=== PATIENT | female | born 1985 | race Caucasian/White ===

== ENCOUNTER 2024-08-04 20:27 | Inpatient (IN) | payer SELFPAY ==
[~2024-08-04] VITALS: Ht 160 cm; Wt 65.8 kg
--- NOTE | 2024-08-04 20:53 | EKG ---
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
--- NOTE | 2024-08-04 21:26 | ERN ---
ED Note History of Present Illness Stated Complaint: VOMITTING Chief Complaint: Abdominal Pain Time Seen by MD: 20:31 Time Seen by Midlevel: 20:31 Dictation: The patient is a 38-year-old female with no past medical history who presents to the emergency department with complaints of nausea nonbloody vomiting onset yesterday. Patient reports epigastric abdominal pain. Denies any diarrhea or constipation. Does not report fevers but reports feeling warm. Allergies: Coded Allergies: No Known Allergies (Unverified Allergy, Unknown, 08/04/24) Past Medical History Past Medical History: Migraines Surgical History: None LMP: Jul 26, 2024 RN Note Reviewed/Agreed w/PFSH: Yes Review of System Dictation Constitutional: Negative for fever,chills, and weight loss Eyes: Negative for injury, pain,redness, and discharge ENT: Negative for injury,pain or swelling Cardiovascular: Negative for chest pain, palpitations, and edema Respiratory: Negative for shortness of breath, cough, and wheezing, Abdomen/GI: Negative for diarrhea, and constipation positive for abdominal pain, nausea, vomiting, Back: Negative for injury and pain : Negative for injury, bleeding and discharge MS/Extremity: Negative for injury and deformity Skin: Negative for rash, and discoloration Neuro: Negative for headache, weakness, numbness, tingling, and seizure Psych: Negative for suicide ideation, homicidal ideation, and hallucinations Initial Vital Sign VS Vital Signs Date Time Temp Pulse Resp B/P (MAP) Pulse Ox O2 Delivery O2 Flow Rate FiO2 08/04/24 21:20 97.7 75 20 117/84 97 Room Air 08/04/24 21:39 0 21 Physical Exam Dictation Vital Signs reviewed General Appearance: Alert, oriented x 3, no acute distress, well developed, nourished. Head and Face: non-traumatic. Eyes: PERRL, pink conjunctivas, eyelid no trauma, anterior chamber with arcus senilis. Ears: Pinnas intact and no signs of trauma or erythema ear canals clear and no discharge TM no erythema Nose: No discharge, no bleeding. Oropharynx: Mouth normal, tongue pink. pharynx clear,no erythema, tonsils no exudates, no abscesses noted, mucous membrane moist Neck: Supple, non-tender, no thyromegaly, no masses, no JVD, no bruits Breast:Deferred Chest:No tenderness, no crepitus, no paradoxical movement, no retractions Lungs:Clear, well-ventilated, symmetric, no rales, no wheezing, no rhonchi, no stridor, good breath sounds bilaterally Heart: Regular rate, regular rhythm, no murmur, no gallops Vascular: no peripheral edema, Abdomen: Soft, positive bowel sounds, nondistended, no guarding, nontender, no rebound, no masses no hepatomegaly, no splenomegaly, no Peters's sign, no hernias. Rectal: Deferred Genital: Deferred Neurological: Normal speech, motor function intact, sensory function intact Musculoskeletal: Neck nontender, full range of motion, back nontender, full range of motion, Extremities: nontender, full range of motion Skin: Color pink, dry, no turgor, no rash, no lacerations, no abrasions, no contusions. Lymphatic: Deferred Results (Laboratory/Radiology) Laboratory/Radiology Laboratory Tests Test 08/04/24 21:24 08/04/24 21:38 Urine Color YELLOW (YELLOW) Urine Appearance CLEAR (CLEAR) Urine pH 5.5 (5.0-8.0) Urine Specific [place] 1.016 (1.001-1.031) Urine Protein 10 mg/dL (NEGATIVE) H Urine Glucose (UA) NEGATIVE mg/dL (NEGATIVE) Urine Ketones 10 mg/dL (NEGATIVE) H Urine Occult Blood +- (TRACE) (NEGATIVE) H Urine Nitrate NEGATIVE (NEGATIVE) Urine Bilirubin NEGATIVE mg/dL (NEGATIVE) Urine Urobilinogen 3 mg/dL (0.2-1.0) H Urine Leukocyte Esterase NEGATIVE Bebeto/uL Urine RBC 0-1 /HPF (0-1) Urine WBC 6-10 /HPF (0-1) H Urine Squamous Epithelial Cells FEW /HPF (0-2) Urine Bacteria FEW /HPF (None Seen) Urine Other Casts 1 /LPF (None Seen) Urine HCG, Qualitative NEGATIVE (NEGATIVE) White Blood Count 6.3 K/uL (4.8-10.8) Red Blood Count 4.59 MIL/uL (4.00-5.50) Hemoglobin 13.4 g/dL (12.0-16.0) Hematocrit 38.7 % (36-48) Mean Corpuscular Volume 84.3 fL (79-99) Mean Corpuscular Hemoglobin 29.2 pg (27.0-33.0) Mean Corpuscular Hemoglobin Concent 34.6 g/dL (32.0-36.0) Red Cell Distribution Width 12.6 % (11.0-15.5) Platelet Count 166 K/uL (130-400) Mean Platelet Volume 9.7 fL (7.5-10.5) Immature Granulocyte % (Auto) 0.5 % (0-1) Neutrophils (%) (Auto) 40.2 % (40.0-77.0) Lymphocytes (%) (Auto) 41.7 % (21.0-51.0) Monocytes (%) (Auto) 13.0 % (3.0-13.0) Eosinophils (%) (Auto) 3.3 % (0.0-8.0) Basophils (%) (Auto) 1.3 % (0.0-5.0) Neutrophils # (Auto) 2.5 K/uL (1.8-7.7) Lymphocytes # (Auto) 2.6 K/uL (1.0-4.8) Monocytes # (Auto) 0.8 K/uL (0.1-1.0) Eosinophils # (Auto) 0.21 K/uL (0.00-0.70) Basophils # (Auto) 0.08 K/uL (0.00-0.20) Absolute Immature Granulocyte (auto 0.03 K/uL (0-1) Segmented Neutrophils % 46 % (40-70) Band Neutrophils % 8 % (0-2) H Lymphocytes % (Manual) 3 % (22-44) L Monocytes % (Manual) 5 % (2-9) Eosinophils % (Manual) 3 % (1-6) Nucleated Red Blood Cells 0.0 % (0.0-0.19) Differential Comment MANUAL DIFFERENTIAL Reactive Lymphocytes 35 % (0-0) H White Cell Morphology Comment Platelet Morphology Comment Red Blood Cell Morphology MICROCYTIC 1+ Sodium Level 135 mmol/L (136-145) L Potassium Level 3.6 mmol/L (3.5-5.1) Chloride Level 96 mmol/L (101-111) L Carbon Dioxide Level 32 mmol/L (21-32) Blood Urea Nitrogen 8 mg/dL (7-18) Creatinine 0.8 mg/dL (0.5-1.0) Glomerular Filtration Rate Calc 97 mL/min (>90) Random Glucose 107 mg/dL (70-105) H Total Calcium 9.0 mg/dL (8.5-10.1) Total Bilirubin 1.3 mg/dL (0.2-1.0) H Direct Bilirubin 0.6 mg/dL (0.0-0.3) H Aspartate Amino Transf (AST/SGOT) 1032 U/L (10-37) *H Alanine Aminotransferase (ALT/SGPT) 1868 U/L (12-78) *H Alkaline Phosphatase 233 U/L (50-136) H Troponin I High Sensitivity < 4 ng/L (4-50) L Total Protein 8.2 g/dL (6.0-8.3) Albumin 3.6 g/dL (3.5-5.0) Lipase 50 U/L (16-77) Labs Reviewed?: Yes EKG: (+) rhythm (Sinus rhythm) EKG Comment: Date:08/04/2024 Time:2049 Ventricular rate:76 [place] interval:127 QRS duration:81 QT/QTc:366 EKG interpretation: Sinus rhythm Reviewed by ED Attending no STEMI ED Course ED Course Orders Procedure Category Date Status Time Cbc With Differential LAB 08/04/24 Complete 20:43 Troponin I High LAB 08/04/24 Complete Sensitivity 20:43 ,Urine Test LAB 08/04/24 Complete 20:43 Urinalysis Profile LAB 08/04/24 Complete 20:43 12 Lead Ekg Tracing- EKG 08/04/24 Complete Technical 20:43 0.9%Nacl 1000ml (Ns PHA 08/04/24 Complete 1000ml) 21:00 Ondansetron 4mg Inj PHA 08/04/24 Complete (Zofran 4mg Inj) 21:00 Pantoprazole 40mg Inj PHA 08/04/24 Complete (Protonix 40mg Inj 21:00 Lipase LAB 08/04/24 Complete 20:43 Basic Metabolic Panel LAB 08/04/24 Complete 20:43 Hepatic Function Panel LAB 08/04/24 Complete 20:43 Culture Urine CHACHA 08/04/24 In Process 21:40 Manual Differential LAB 08/04/24 Complete 21:38 Us Abdominal Ruq\Ltd US 08/04/24 Taken 22:22 Edm Admit Bridge Order ADM 08/04/24 Transmitted 23:46 Admit Orders ADM 08/04/24 Transmitted 23:46 Current Medications Medications (Trade) Dose Ordered Sig/Thelma Route PRN Reason Start Time Stop Time Status Last Admin Dose Admin Ondansetron HCl (zoFRAN 4MG INJ) 4 mg ONCE ONCE IVP 08/04/24 21:00 08/04/24 21:23 DC 08/04/24 22:09 Pantoprazole Sodium (PROTonix 40MG INJ) 40 mg ONCE ONCE IVP 08/04/24 21:00 08/04/24 21:23 DC 08/04/24 22:10 Sodium Chloride 1,000 ml @ 0 mls/hr ONCE ONCE IV 08/04/24 21:00 08/04/24 21:23 DC 08/04/24 22:10 Vital Signs Date Time Temp Pulse Resp B/P (MAP) Pulse Ox O2 Delivery O2 Flow Rate FiO2 08/04/24 23:38 70 16 112/77 99 Room Air* 0 21 08/04/24 21:39 98.1 73 18 117/78 99 Room Air* 0 21 08/04/24 21:20 97.7 75 20 117/84 97 Room Air Medical Decision Making MDM MDM: The patient is a 38-year-old female with no past medical history who presents to the emergency department with complaints of nausea nonbloody vomiting onset yesterday. Patient reports epigastric abdominal pain. Denies any diarrhea or constipation. Does not report fevers but reports feeling warm. CBC showed no leukocytosis, no anemia, chemistry showed mild hyponatremia, hypochloremia, normal renal function, AST and ALT severely elevated, total bilirubin 1.3, negative lipase, negative troponin. Ultrasound revealed no gallstones. Patient's pain improved. We will be admitted for further evaluation of transaminitis. Differential diagnosis: Gastritis, gastroenteritis, dehydration, electrolyte imbalance, Comorbidities: None Tests considered and not ordered secondary to shared decision making include: none Previous outside records reviewed: none Risk of complication and/or morbidity or mortality of patient management: The patient meets criteria for admission. Need for emergency major/minor surgery: No There are no social concerns with this patient. I independently interpreted the tests I ordered (labs, urinalysis, etc.). I discussed the case with the hospitalist for admission. [facility] who accepts admission I discussed the case with the following specialists: none. Historian: pateint. I independently interpreted imaging studies and EKGs that I ordered (US, CT, XR, EKG, etc.). External chart review: none. Medical management and examination interpretation discussions were had by me with other qualified healthcare professionals as indicated for the patient's care. DX & DISP Disposition: Inpatient Decision to Admit Date: Aug 04, 2024 Decision to Admit Time: 23:52 Departure Impression: Primary Impression: Transaminitis Additional Impressions: Total bilirubin, elevated, Nausea and vomiting, Epigastric pain, Hyponatremia, Hypochloremia Condition: Stable I have reviewed the case, and I agree with, Diagnosis and Plan MARIE CHANEY [facility] Aug 04, 2024 21:26
[2024-08-04 21:37] LABS: APPEARANCE,URINE CLEAR (CLEAR); BILIRUBIN,URINE NEGATIVE (NEGATIVE); COLOR,URINE YELLOW (YELLOW); GLUCOSE, URINE (UA) NEGATIVE (NEGATIVE); KETONES,URINE 10 mg/dL (NEGATIVE); LEUKOCYTE ESTERASE ,URINE NEGATIVE Leu/uL (NEGATIVE); NITRATE,URINE NEGATIVE (NEGATIVE); PH,URINE 5.5 (5.0-8.0); PROTEIN,URINE 10 mg/dL (NEGATIVE); UROBILINOGEN,URINE 3 mg/dL (0.2-1.0)
[2024-08-04 21:38] LABS: HCG,QUALITATIVE URINE NEGATIVE (NEGATIVE)
[2024-08-04 21:39] LABS: ADD UA MICROSCOPIC YES
--- NOTE | 2024-08-04 21:39 | NUR ---
PT CARE ASSUMED AT THIS TIME
[2024-08-04 21:40] LABS: BACTERIA,URINE FEW /HPF (None Seen); MUCUS,URINE RARE LPF (None Seen); OTHER CASTS, URINE 1 /LPF (None Seen); RBC,URINE 0-1 /HPF (0-1); SQUAMOUS EPITHELIAL CELL,UR FEW /HPF (0-2)
[2024-08-04 21:49] LABS: BASOPHILS # (AUTO) 0.08 K/uL (0.00-0.20); BASOPHILS % (AUTO) 1.3 % (0.0-5.0); EOSINOPHILS # (AUTO) 0.21 K/uL (0.00-0.70); EOSINOPHILS % (AUTO) 3.3 % (0.0-8.0); HEMATOCRIT 38.7 % (36-48); IMMATURE GRANULOCYTE ABSOLUTE 0.03 K/uL (0-1); LYMPHOCYTES # (AUTO) 2.6 K/uL (1.0-4.8); LYMPHOCYTES % (AUTO) 41.7 % (21.0-51.0); MEAN CORPUSCULAR HEMOGLOBIN 29.2 pg (27.0-33.0); MEAN CORPUSCULAR HGB CONC 34.6 g/dL (32.0-36.0); MEAN CORPUSCULAR VOLUME 84.3 fL (79-99); MONOCYTES # (AUTO) 0.8 K/uL (0.1-1.0); NEUTROPHILS # (AUTO) 2.5 K/uL (1.8-7.7); NEUTROPHILS % (AUTO) 40.2 % (40.0-77.0); PLATELET COUNT (AUTO) 166 K/uL (130-400); RED BLOOD CELL COUNT(AUTO) 4.59 MIL/uL (4.00-5.50); RED CELL DISTRIBUTION WIDTH 12.6 % (11.0-15.5); WHITE BLOOD COUNT (AUTO) 6.3 K/uL (4.8-10.8)
[2024-08-04 22:01] LABS: CREATININE 0.8 mg/dL (0.5-1.0); POTASSIUM 3.6 mmol/L (3.5-5.1)
[2024-08-04] MEDS: ondanSETRON 4MG INJ IVP ONE (22:09)
[2024-08-04] MEDS: 0.9%NACL 1000ML 1,000 ML IV ONE (22:10)
[2024-08-04] MEDS: PANTOPrazole 40 MG/VIAL IVP ONE (22:10)
[2024-08-04 22:16] LABS: ALBUMIN 3.6 g/dL (3.5-5.0); BILIRUBIN,DIRECT 0.6 mg/dL (0.0-0.3); BILIRUBIN,TOTAL 1.3 mg/dL (0.2-1.0); TOTAL PROTEIN, SERUM 8.2 g/dL (6.0-8.3)
[2024-08-04 22:22] LABS: BAND NEUTROPHILS % (MANUAL) 8 % (0-2); EOSINOPHILS % (MANUAL) 3 % (1-6); LYMPHOCYTES % (MANUAL) 3 % (22-44); MAN.DIFF COMMENT-IMPRESSION MANUAL DIFFERENTIAL; MONOCYTES % (MANUAL) 5 % (2-9); REACTIVE LYMPHOCYTES 35 % (0-0); SEGMENTED NEUTROPHILS % 46 % (40-70); TOTAL CELLS COUNTED 100
--- NOTE | 2024-08-04 23:46 | HP ---
[facility] PH[facility] Date of Service: Aug 04, 2024 Time of Service: 23:46 PCP: Self-referral HISTORY OF PRESENT ILLNESS: This is a 38-year-old female with no pertinent medical history who presents to the ED for complaints of abdominal pain, nausea and vomiting. Patient reports three weeks ago she started having chills subsided and last week she started having headaches and she has been taking Tylenol 1000 mg three to 4 times a day and ibuprofen everyday since last week. Patient states last Sunday and Sunday she started having nausea and vomiting for about 10 episodes per day and today she started having mild fever, abdominal pain around mid abdomen so she decided to come to the ED for evaluation. Patient denies alcohol, cigarette and recreational drug use. Seen and examined patient in the ER awake alert coherent and appears comfortable. Patient denies itching, diarrhea, constipation, chest pain, cough, palpitation and shortness of breaths. Vital signs 98.1, heart rate 70, blood pressure 112/77 saturation 99% on room air. Labs CBC unremarkable. Sodium 135, chloride 96, glucose 107, total bilirubin 1.3, direct bilirubin 0.6, AST 1032, ALT 1868 alkaline phosphatase 233 troponin less than four lipase 50. Abdominal ultrasound result is still pending at this time. While in the ER patient received Protonix 40 mg IV, Zofran 4 mg IV and 1 L NS bolus. We will admit patient for further medical management. REVIEW OF SYSTEMS CONSTITUTIONAL: Positive chills Denies fevers, night sweats. No unintentional weight loss reported. NEUROLOGICAL: Denies headache, amaurosis fugax, motor weakness, sensory deficit, vertigo/spinning sensation, gait abnormalities, or tremors. ENT: No hearing loss, otalgia, otorrhea, rhinitis, rhinorrhea, hoarseness, or sore throat. CARDIOVASCULAR: Denies any exertional angina, dyspnea on exertion, orthopnea, paroxysmal nocturnal dyspnea, palpitations, life-threatening arrhythmias, claudication. PULMONARY: Denies any shortness of breath, cough, phlegm/sputum, hemoptysis, pleuritic chest pain. SLEEP: Denies morning headaches, daytime somnolence or napping. Denies difficul ty falling asleep, staying asleep, waking from sleep. Denies knowledge of snoring. GASTROINTESTINAL: Complain of abdominal pain nausea and vomiting Denies any type of dysphagia to either liquids or solids. Denies pyrosis, early satiety, diarrhea, constipation, or changes in stool consistency or caliber. Denies coffee-ground emesis, hematemesis, hematochezia, or melanotic stools. GENITOURINARY: Denies frequency, urgency, nocturia, hematuria or incontinence (Storage/Irritative symptoms.) Low urinary stream, straining to void, urinary intermittency or hesitancy, splitting of the voiding stream, terminal dribbling. ENDOCRINOLOGIC: Denies polyuria, polydipsia, polyphagia or heat/cold intolerances. HEMATOLOGIC: Denies thrombophilia/previous clots, or coagulopathy/bleeding dis orders. ONCOLOGIC: Denies personal history of malignancy. DERMATOLOGIC: Denies rashes or pruritus. PSYCHIATRIC: Denies any suicidal or homicidal ideation. Denies hallucinations. PAST MEDICAL HISTORY: [Patient denies ] PAST SURGICAL HISTORY: [ x1 ] PAST SOCIAL HISTORY: [ Patient lives with . Patient denies alcohol tobacco and recreational drug use ] FAMILY HISTORY: [ Noncontributory] Coded Allergies: No Known Allergies (Unverified Allergy, Unknown, 08/04/24) PHYSICAL EXAM GENERAL APPEARANCE: The patient is awake, alert, and oriented, in no acute cardiopulmonary distress. NEUROLOGICAL: Cranial nerves II-XII grossly intact. Motor is 5/5 in bilateral upper and lower extremities proximal to distal. No sensory deficits. HEENT: Face is symmetric. Pupils are equal and reactive. Extraocular movements are intact. NECK: Supple. No JVD. No thyromegaly. No submental, submandibular, pre- /postauricular, occipital or supraclavicular lymphadenopathy. CHEST: Normal chest expansion. No Telemetry. LUNGS: Absence of any rales, rhonchi or any wheezing. CARDIOVASCULAR: Regular. S1 and S2 normal. No appreciable rubs, murmurs or gallops. ABDOMEN: Positive tenderness around mid abdomen on palpation Softand nondistended. There is no rebound, voluntary guarding, or rigidity. : Deferred. No [place]. EXTREMITIES: Non-edematous and not cyanotic. No clubbing. Good capillary refill. SKIN: No skin breakdown. Vital Sign (Last 24 Hours) 08/04/24 08/04/24 21:39 23:38 Temp 98.1 Pulse 70 Resp 16 B/P (MAP) 112/77 Pulse Ox 99 O2 Delivery Room Air* O2 Flow Rate 0 FiO2 21 LABS: Laboratory: Test 08/04/24 21:38 08/04/24 21:24 Range/Units White Blood Count 6.3 4.8-10.8 K/uL Red Blood Count 4.59 4.00-5.50 MIL/uL Hemoglobin 13.4 12.0-16.0 g/dL Hematocrit 38.7 36-48 % Mean Corpuscular Volume 84.3 79-99 fL Mean Corpuscular Hemoglobin 29.2 27.0-33.0 pg Mean Corpuscular Hemoglobin Concent 34.6 32.0-36.0 g/dL Red Cell Distribution Width 12.6 11.0-15.5 % Platelet Count 166 130-400 K/uL Mean Platelet Volume 9.7 7.5-10.5 fL Immature Granulocyte % (Auto) 0.5 0-1 % Neutrophils (%) (Auto) 40.2 40.0-77.0 % Lymphocytes (%) (Auto) 41.7 21.0-51.0 % Monocytes (%) (Auto) 13.0 3.0-13.0 % Eosinophils (%) (Auto) 3.3 0.0-8.0 % Basophils (%) (Auto) 1.3 0.0-5.0 % Neutrophils # (Auto) 2.5 1.8-7.7 K/uL Lymphocytes # (Auto) 2.6 1.0-4.8 K/uL Monocytes # (Auto) 0.8 0.1-1.0 K/uL Eosinophils # (Auto) 0.21 0.00-0.70 K/uL Basophils # (Auto) 0.08 0.00-0.20 K/uL Absolute Immature Granulocyte (auto 0.03 0-1 K/uL Segmented Neutrophils % 46 40-70 % Band Neutrophils % 8 H 0-2 % Lymphocytes % (Manual) 3 L 22-44 % Monocytes % (Manual) 5 2-9 % Eosinophils % (Manual) 3 1-6 % Nucleated Red Blood Cells 0.0 0.0-0.19 % Differential Comment MANUAL DIFFERENTIAL Reactive Lymphocytes 35 H 0-0 % White Cell Morphology Comment Platelet Morphology Comment Red Blood Cell Morphology MICROCYTIC 1+ Sodium Level 135 L 136-145 mmol/L Potassium Level 3.6 3.5-5.1 mmol/L Chloride Level 96 L 101-111 mmol/L Carbon Dioxide Level 32 21-32 mmol/L Blood Urea Nitrogen 8 7-18 mg/dL Creatinine 0.8 0.5-1.0 mg/dL Glomerular Filtration Rate Calc 97 >90 mL/min Random Glucose 107 H 70-105 mg/dL Total Calcium 9.0 8.5-10.1 mg/dL Total Bilirubin 1.3 H 0.2-1.0 mg/dL Direct Bilirubin 0.6 H 0.0-0.3 mg/dL Aspartate Amino Transf (AST/SGOT) 1032 *H 10-37 U/L Alanine Aminotransferase (ALT/SGPT) 1868 *H 12-78 U/L Alkaline Phosphatase 233 H 50-136 U/L Troponin I High Sensitivity < 4 L 4-50 ng/L Total Protein 8.2 6.0-8.3 g/dL Albumin 3.6 3.5-5.0 g/dL Lipase 50 16-77 U/L Urine Color YELLOW YELLOW Urine Appearance CLEAR CLEAR Urine pH 5.5 5.0-8.0 Urine Specific [place] 1.016 1.001-1.031 Urine Protein 10 H NEGATIVE mg/dL Urine Glucose (UA) NEGATIVE NEGATIVE mg/dL Urine Ketones 10 H NEGATIVE mg/dL Urine Occult Blood +- (TRACE) H NEGATIVE Urine Nitrate NEGATIVE NEGATIVE Urine Bilirubin NEGATIVE NEGATIVE mg/dL Urine Urobilinogen 3 H 0.2-1.0 mg/dL Urine Leukocyte Esterase NEGATIVE NEGATIVE Bebeto/uL Urine RBC 0-1 0-1 /HPF Urine WBC 6-10 H 0-1 /HPF Urine Squamous Epithelial Cells FEW 0-2 /HPF Urine Bacteria FEW None Seen /HPF Urine Other Casts 1 None Seen /LPF Urine HCG, Qualitative NEGATIVE NEGATIVE DIAGNOSTICS / RADIOLOGY: [ ] ASSESSMENT: 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 POA Elevated liver enzymes POA Dehydration POA PLAN: We will admit patient in medical telemetry We will start on clear liquid diet advanced as tolerated We will start NS @ 100 ml / hr x2 bags and re evaluate We will start on Famotidine 20 mg IV bid for GI prophylaxis We will replace electrolytes as needed per protocol We will add prn medication for fever,pain,cough ,nausea and vomiting We will follow up abdominal ultrasound result We will seek gastroenterology consultation We will request labs in am Further orders to follow depending on above results Case discussed with attending physician and came up with above treatment and plan of care. ADVANCED CARE PLANNING 1. Which of the following were discussed? Hospice Care - No Therapeutic options - Yes Advance Directives - No Other discussions - 2. Discussed with who? Patient and Devin 3. Voluntary nature of this service was explained to the patient? Yes 4. Amount of time spent - _20 5. Reviewed by Physician? (if this service was performed by NPP) Yes Patient seen and examined by me. Agree with note by IMAGING ENGINEER SEE ADDITIONAL ORDERS PER CHART DISCUSSED WITH NURSING STAFF CORBY GARIBAY [employer] RESOURCES DIRECTOR Aug 04, 2024 23:46
[2024-08-05] MEDS: 0.9%NACL 1000ML 1,000 ML IV SCH (01:40)
--- NOTE | 2024-08-05 01:41 | HMCIMG ---
US ABDOMINAL RUQ\E\LTD HISTORY: No additional history given. COMPARISON: None TECHNIQUE: Right upper quadrant abdominal ultrasound study was performed. FINDINGS: The study is limited due to overlying bowel gas. The visualized portion of the pancreas is within normal limits. Liver measures 14.4 cm. Liver is echogenic consistent with liver parenchymal disease. No gallstone is seen. Common duct measures 5 mm. No evidence of gallbladder wall thickening is seen. Right kidney measures 9.9 x 5.2 x 5.1 cm. No hydronephrosis is seen of the right kidney. IMPRESSION: 1. No gallstones or ductal dilatation is seen. 2. No hydronephrosis is seen.
[2024-08-05] MEDS: ondanSETRON 4MG INJ IV PRN (01:44)
--- NOTE | 2024-08-05 04:41 | NUR ---
PROVIDER PAGED AT THIS TIME REGAURDING MEDICATION. PENDING CALL BACK.
[2024-08-05 04:50] LABS: BASOPHILS # (AUTO) 0.07 K/uL (0.00-0.20); BASOPHILS % (AUTO) 1.3 % (0.0-5.0); EOSINOPHILS # (AUTO) 0.21 K/uL (0.00-0.70); EOSINOPHILS % (AUTO) 3.9 % (0.0-8.0); HEMATOCRIT 33.2 % (36-48); IMMATURE GRANULOCYTE ABSOLUTE 0.03 K/uL (0-1); LYMPHOCYTES # (AUTO) 2.2 K/uL (1.0-4.8); LYMPHOCYTES % (AUTO) 39.9 % (21.0-51.0); MEAN CORPUSCULAR HEMOGLOBIN 29.5 pg (27.0-33.0); MEAN CORPUSCULAR HGB CONC 34.9 g/dL (32.0-36.0); MEAN CORPUSCULAR VOLUME 84.5 fL (79-99); MONOCYTES # (AUTO) 0.7 K/uL (0.1-1.0); MONOCYTES % (AUTO) 12.6 % (3.0-13.0); NEUTROPHILS # (AUTO) 2.3 K/uL (1.8-7.7); NEUTROPHILS % (AUTO) 41.7 % (40.0-77.0); PLATELET COUNT (AUTO) 147 K/uL (130-400); RED BLOOD CELL COUNT(AUTO) 3.93 MIL/uL (4.00-5.50); RED CELL DISTRIBUTION WIDTH 12.5 % (11.0-15.5); WHITE BLOOD COUNT (AUTO) 5.4 K/uL (4.8-10.8)
[2024-08-05 05:10] LABS: ALBUMIN 2.9 g/dL (3.5-5.0); BILIRUBIN,DIRECT 0.5 mg/dL (0.0-0.3); BILIRUBIN,TOTAL 1.1 mg/dL (0.2-1.0); CARBON DIOXIDE 31 mmol/L (21-32); CHLORIDE 101 mmol/L (101-111); CREATININE 0.7 mg/dL (0.5-1.0); GAMMA GLUTAMYL TRANSFERASE 133 U/L (5-85); GLOMERULAR FILTR. RATE CALC 114 mL/min (>90); GLUCOSE,RANDOM 96 mg/dL (70-105); LACTATE DEHYDROGENASE 537 U/L (81-234); POTASSIUM 3.2 mmol/L (3.5-5.1); SODIUM SERUM 138 mmol/L (136-145); TOTAL PROTEIN, SERUM 6.9 g/dL (6.0-8.3); UREA NITROGEN, BLOOD 6 mg/dL (7-18)
[2024-08-05 05:13] LABS: ACETAMINOPHEN < 1 mcg/mL (10-30)
[2024-08-05 05:14] LABS: ALANINE AMINOTRANSFERASE 1548 U/L (12-78); ASPARTATE AMINOTRANSFERASE 844 U/L (10-37)
--- NOTE | 2024-08-05 05:56 | NUR ---
PROVIDER CALLED BACK AT THIS TIME. ORDERS GIVEN.
[2024-08-05] MEDS: ketOROlac 15MG/ML VIAL (15MG/ML) IV ONE (06:35)
--- NOTE | 2024-08-05 07:09 | NUR ---
REPORT GIVEN TO SUSANA DIANE AT THIS TIME
--- NOTE | 2024-08-05 08:51 | NUR ---
NOTIFIED SUKHWINDER MENDOZA OF CONSULT, NO NEW ORDERS AT THIS TIME
[2024-08-05] MEDS: FAMOTIDINE 20MG VIAL IV SCH (08:58)
--- NOTE | 2024-08-05 09:50 | PN ---
[facility] PROGRESS NOTE Date of Service: Aug 05, 2024 Time of Service: 09:27 SUBJECTIVE: [38 year old presented to the ED with complaints of abdominal pain, nausea and vomiting. Patient also with chills, headaches. Patient reported that she has been taking Tylenol 1000 mg, 3-4 times a day and ibuprofen since last week. This weekend, patient started having nausea and vomiting for about 10 times and started having fever. Patient was noted with elevated transaminitis which could be due to suspected Tylenol induced hepatotoxicity. 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 Patient will remain on clear liquid diet. Continue with IV fluids. ] REVIEW OF SYSTEMS CONSTITUTIONAL: Positive chills Denies fevers, night sweats. No unintentional weight loss reported. NEUROLOGICAL: Denies headache, amaurosis fugax, motor weakness, sensory deficit, vertigo/spinning sensation, gait abnormalities, or tremors. ENT: No hearing loss, otalgia, otorrhea, rhinitis, rhinorrhea, hoarseness, or sore throat. CARDIOVASCULAR: Denies any exertional angina, dyspnea on exertion, orthopnea, paroxysmal nocturnal dyspnea, palpitations, life-threatening arrhythmias, claudication. PULMONARY: Denies any shortness of breath, cough, phlegm/sputum, hemoptysis, pleuritic chest pain. SLEEP: Denies morning headaches, daytime somnolence or napping. Denies difficulty falling asleep, staying asleep, waking from sleep. Denies knowledge of snoring. GASTROINTESTINAL: Complain of abdominal pain nausea and vomiting Denies any type of dysphagia to either liquids or solids. Denies pyrosis, early satiety, diarrhea, constipation, or changes in stool consistency or caliber. Denies coffee-ground emesis, hematemesis, hematochezia, or melanotic stools. GENITOURINARY: Denies frequency, urgency, nocturia, hematuria or incontinence (Storage/Irritative symptoms.) Low urinary stream, straining to void, urinary intermittency or hesitancy, splitting of the voiding stream, terminal dribbling. ENDOCRINOLOGIC: Denies polyuria, polydipsia, polyphagia or heat/cold intolerances. HEMATOLOGIC: Denies thrombophilia/previous clots, or coagulopathy/bleeding disorders. ONCOLOGIC: Denies personal history of malignancy. DERMATOLOGIC: Denies rashes or pruritus. PSYCHIATRIC: Denies any suicidal or homicidal ideation. Denies hallucinations. PHYSICAL EXAM GENERAL APPEARANCE: The patient is awake, alert, and oriented, in no acute cardiopulmonary distress. NEUROLOGICAL: Cranial nerves II-XII grossly intact. Motor is 5/5 in bilateral upper and lower extremities proximal to distal. No sensory deficits. HEENT: Face is symmetric. Pupils are equal and reactive. Extraocular movements are intact. NECK: Supple. No JVD. No thyromegaly. No submental, submandibular, pre- /postauricular, occipital or supraclavicular lymphadenopathy. CHEST: Normal chest expansion. No Telemetry. LUNGS: Absence of any rales, rhonchi or any wheezing. CARDIOVASCULAR: Regular. S1 and S2 normal. No appreciable rubs, murmurs or gallops. ABDOMEN: Positive tenderness around mid abdomen on palpation Softand nondistended. There is no rebound, voluntary guarding, or rigidity. : Deferred. No Oseguera. EXTREMITIES: Non-edematous and not cyanotic. No clubbing. Good capillary refill. SKIN: No skin breakdown. Vital Signs (last 8hr) Date Time Temp Pulse Resp B/P (MAP) Pulse Ox O2 Delivery O2 Flow Rate FiO2 08/05/24 07:29 98.2 90 16 117/60 99 Room Air* 0 21 08/05/24 07:11 83 17 117/60 98 Room Air* 0 21 08/05/24 06:05 72 16 118/73 99 Room Air* 0 21 08/05/24 04:03 65 13 110/74 99 Room Air* 0 21 LABS: Laboratory: Test 08/05/24 04:37 08/04/24 21:38 08/04/24 21:24 Range/Units White Blood Count 5.4 4.8-10.8 K/uL Red Blood Count 3.93 L 4.00-5.50 MIL/uL Hemoglobin 11.6 L 12.0-16.0 g/dL Hematocrit 33.2 L 36-48 % Mean Corpuscular Volume 84.5 79-99 fL Mean Corpuscular Hemoglobin 29.5 27.0-33.0 pg Mean Corpuscular Hemoglobin Concent 34.9 32.0-36.0 g/dL Red Cell Distribution Width 12.5 11.0-15.5 % Platelet Count 147 130-400 K/uL Mean Platelet Volume 9.7 7.5-10.5 fL Immature Granulocyte % (Auto) 0.6 0-1 % Neutrophils (%) (Auto) 41.7 40.0-77.0 % Lymphocytes (%) (Auto) 39.9 21.0-51.0 % Monocytes (%) (Auto) 12.6 3.0-13.0 % Eosinophils (%) (Auto) 3.9 0.0-8.0 % Basophils (%) (Auto) 1.3 0.0-5.0 % Neutrophils # (Auto) 2.3 1.8-7.7 K/uL Lymphocytes # (Auto) 2.2 1.0-4.8 K/uL Monocytes # (Auto) 0.7 0.1-1.0 K/uL Eosinophils # (Auto) 0.21 0.00-0.70 K/uL Basophils # (Auto) 0.07 0.00-0.20 K/uL Absolute Immature Granulocyte (auto 0.03 0-1 K/uL Nucleated Red Blood Cells 0.0 0.0-0.19 % Sodium Level 138 136-145 mmol/L Potassium Level 3.2 L 3.5-5.1 mmol/L Chloride Level 101 101-111 mmol/L Carbon Dioxide Level 31 21-32 mmol/L Blood Urea Nitrogen 6 L 7-18 mg/dL Creatinine 0.7 0.5-1.0 mg/dL Glomerular Filtration Rate Calc 114 >90 mL/min Random Glucose 96 70-105 mg/dL Total Calcium 8.0 L 8.5-10.1 mg/dL Magnesium Level 1.70 L 1.80-2.40 mg/dL Total Bilirubin 1.1 H 0.2-1.0 mg/dL Direct Bilirubin 0.5 H 0.0-0.3 mg/dL Gamma Glutamyl Transpeptidase 133 H 5-85 U/L Aspartate Amino Transf (AST/SGOT) 844 *H 10-37 U/L Alanine Aminotransferase (ALT/SGPT) 1548 *H 12-78 U/L Alkaline Phosphatase 183 H 50-136 U/L Lactate Dehydrogenase 537 H 81-234 U/L Total Protein 6.9 6.0-8.3 g/dL Albumin 2.9 L 3.5-5.0 g/dL Acetaminophen Level < 1 L 10-30 mcg/mL Segmented Neutrophils % 46 40-70 % Band Neutrophils % 8 H 0-2 % Lymphocytes % (Manual) 3 L 22-44 % Monocytes % (Manual) 5 2-9 % Eosinophils % (Manual) 3 1-6 % Differential Comment MANUAL DIFFERENTIAL Reactive Lymphocytes 35 H 0-0 % White Cell Morphology Comment Platelet Morphology Comment Red Blood Cell Morphology MICROCYTIC 1+ Troponin I High Sensitivity < 4 L 4-50 ng/L Lipase 50 16-77 U/L Urine Color YELLOW YELLOW Urine Appearance CLEAR CLEAR Urine pH 5.5 5.0-8.0 Urine Specific [place] 1.016 1.001-1.031 Urine Protein 10 H NEGATIVE mg/dL Urine Glucose (UA) NEGATIVE NEGATIVE mg/dL Urine Ketones 10 H NEGATIVE mg/dL Urine Occult Blood +- (TRACE) H NEGATIVE Urine Nitrate NEGATIVE NEGATIVE Urine Bilirubin NEGATIVE NEGATIVE mg/dL Urine Urobilinogen 3 H 0.2-1.0 mg/dL Urine Leukocyte Esterase NEGATIVE NEGATIVE Bebeto/uL Urine RBC 0-1 0-1 /HPF Urine WBC 6-10 H 0-1 /HPF Urine Squamous Epithelial Cells FEW 0-2 /HPF Urine Bacteria FEW None Seen /HPF Urine Other Casts 1 None Seen /LPF Urine HCG, Qualitative NEGATIVE NEGATIVE Current Medications Medications (Trade) Dose Ordered Sig/Thelma Route PRN Reason Start Time Stop Time Status Last Admin Dose Admin Famotidine (Pepcid 20mg Vial) 20 mg BID IV 08/05/24 09:00 09/04/24 08:59 08/05/24 08:58 20 MG Ondansetron HCl (zoFRAN 4MG INJ) 4 mg Q6H PRN IV NAUSEA/VOMITING 08/05/24 01:00 09/04/24 00:59 08/05/24 01:44 4 MG Sodium Chloride 1,000 ml @ 100 mls/hr Q10H IV 08/05/24 01:00 09/04/24 00:59 08/05/24 01:40 100 MLS/HR DIAGNOSTICS / RADIOLOGY: [ ] ASSESSMENT: 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 POA Elevated liver enzymes POA Dehydration POA PLAN: Continue medical telemetry Continue clear liquid diet advanced as tolerated Continue NS @ 100 ml / hr x2 bags and re evaluate Continue on Famotidine 20 mg IV bid for GI prophylaxis We will replace electrolytes as needed per protocol We will add prn medication for fever,pain,cough ,nausea and vomiting Ultrasound was unremarkable We will follow up with GI We will order routine, AMA, HARRY, ASMA, hip panel we will be followed up We will request labs in am Further orders to follow depending on above results Case discussed with attending physician and came up with above treatment and plan of care. ATTESTATION BY PHYSICIAN I have seen and examined the patient. I reviewed the documentation, medical decision making, and treatment plan as noted by the mid-level provider above. I agree with the findings and plan of care. MARLEE GRANADO MD, [facility] Aug 05, 2024 09:50
--- NOTE | 2024-08-05 10:13 | NUR ---
AGGLUTIN, AMA AND ASMA ORDERED BY ELISE MENDOZA VIE NURSING COMMUNICATION NOTE, CALLED ELISE MENDOZA TO VERIFY ORDER BECAUSE PRIMARY NURSE COULD NOT FIND ON LAB ORDERS, AND STATES SHE SPOKE TO [employer] ABOUT AQUIRING ORDERS FROM NURSING COMMUNICATION AND ORDER THEM. PRIMARY NURSE SPOKE TO CELIA [employer] AND STATES SHE WILL PLACE ORDERS.
--- NOTE | 2024-08-05 10:20 | CONS ---
GASTROENTEROLOGY CONSULTATION NOTE Date of Consultation: Aug 05, 2024 Time of Consultation: 10:20 History of Present Illness: This is a 38-year-old female with no past medical history who presented to the hospital due to abdominal pain, nausea and vomiting. She reported 3 weeks ago that she began to have chills and headaches for which she took Tylenol 3-4 times a day and ibuprofen. She started having persistent nausea and vomiting over 10 episodes per day with mild fever and abdominal pain. Denies alcohol, nicotine or recreational drug use. She was found to have extremely elevated transaminases. Total bilirubin 1.3, AST 1032, ALT 1868 and alkaline phos of 233. Lipase normal. Albumin normal. Hemoglobin 11.6 with a platelet count of 146. INR 1.03. Acute hepatitis panel was negative. Abdominal ultrasound. MRCP also normal. Review of Systems: CONSTITUTIONAL: No malaise or change in sensation of wellbeing. ENMT: No rhinorrhea, otorrhea, sinus pain, ear ache. CARDIOVASCULAR: No angina, palpitations, orthopnea or paroxysmal dyspnea. RESPIRATORY: No SOB. GASTROINTESTINAL: No abdominal pain, nausea, vomiting, diarrhea, hematemesis, melena or change in the patient's habitual bowel movements consistency/number. GENITOURINARY: No dysuria, hematuria or change in bladder continence. MUSCULOSKELETAL: No new muscle pain or decrease in muscular strength. No new joint swelling, redness or tenderness. SKIN: No new rash. Past Medical History: PAST MEDICAL HISTORY: [Patient denies ] PAST SURGICAL HISTORY: [ x1 ] PAST SOCIAL HISTORY: [ Patient lives with . Patient denies alcohol tobacco and recreational drug use ] FAMILY HISTORY: [ Noncontributory] Coded Allergies: No Known Allergies (Unverified Allergy, Unknown, 08/04/24) Physical Exam: GEN: Awake, alert, oriented in person, time and place, and in no acute distress. HEENT: No sinus tenderness. Tympanic membranes were not examined. No rhinorrhea. Oral pharyngeal mucosa is pink, moist and within normal limits. Neck is supple with no cervical lymphadenopathy, thyromegaly or JVD. CHEST: Inspection, palpation and percussion of the chest were unremarkable. Lung auscultation revealed normal breath sounds bilaterally. CARDIAC: PMI is within normal limits. Heart sounds are regular. Normal S1, S2. No gallop or murmur. ABD: Soft, non-tender and not distended. No peritoneal signs on palpation. No organomegaly. Normal bowel sounds. EXT: No cyanosis or clubbing. No edema. SKIN: Intact. No rashes. JOINTS: No evidence of synovitis or acute arthritis. NEURO: Alert and oriented to name, place and person. Cranial nerve examination is unremarkable. No focal motor deficits. Normal speech. Gait is normal. Strength is normal. Vital Sign (Last 24 Hours) 08/05/24 07:29 Temp 98.2 Pulse 90 Resp 16 B/P (MAP) 117/60 Pulse Ox 99 O2 Delivery Room Air* O2 Flow Rate 0 FiO2 21 Laboratory: [ ] Laboratory: Test 08/05/24 04:37 08/04/24 21:38 08/04/24 21:24 Range/Units White Blood Count 5.4 4.8-10.8 K/uL Red Blood Count 3.93 L 4.00-5.50 MIL/uL Hemoglobin 11.6 L 12.0-16.0 g/dL Hematocrit 33.2 L 36-48 % Mean Corpuscular Volume 84.5 79-99 fL Mean Corpuscular Hemoglobin 29.5 27.0-33.0 pg Mean Corpuscular Hemoglobin Concent 34.9 32.0-36.0 g/dL Red Cell Distribution Width 12.5 11.0-15.5 % Platelet Count 147 130-400 K/uL Mean Platelet Volume 9.7 7.5-10.5 fL Immature Granulocyte % (Auto) 0.6 0-1 % Neutrophils (%) (Auto) 41.7 40.0-77.0 % Lymphocytes (%) (Auto) 39.9 21.0-51.0 % Monocytes (%) (Auto) 12.6 3.0-13.0 % Eosinophils (%) (Auto) 3.9 0.0-8.0 % Basophils (%) (Auto) 1.3 0.0-5.0 % Neutrophils # (Auto) 2.3 1.8-7.7 K/uL Lymphocytes # (Auto) 2.2 1.0-4.8 K/uL Monocytes # (Auto) 0.7 0.1-1.0 K/uL Eosinophils # (Auto) 0.21 0.00-0.70 K/uL Basophils # (Auto) 0.07 0.00-0.20 K/uL Absolute Immature Granulocyte (auto 0.03 0-1 K/uL Nucleated Red Blood Cells 0.0 0.0-0.19 % Sodium Level 138 136-145 mmol/L Potassium Level 3.2 L 3.5-5.1 mmol/L Chloride Level 101 101-111 mmol/L Carbon Dioxide Level 31 21-32 mmol/L Blood Urea Nitrogen 6 L 7-18 mg/dL Creatinine 0.7 0.5-1.0 mg/dL Glomerular Filtration Rate Calc 114 >90 mL/min Random Glucose 96 70-105 mg/dL Total Calcium 8.0 L 8.5-10.1 mg/dL Magnesium Level 1.70 L 1.80-2.40 mg/dL Total Bilirubin 1.1 H 0.2-1.0 mg/dL Direct Bilirubin 0.5 H 0.0-0.3 mg/dL Gamma Glutamyl Transpeptidase 133 H 5-85 U/L Aspartate Amino Transf (AST/SGOT) 844 *H 10-37 U/L Alanine Aminotransferase (ALT/SGPT) 1548 *H 12-78 U/L Alkaline Phosphatase 183 H 50-136 U/L Lactate Dehydrogenase 537 H 81-234 U/L Total Protein 6.9 6.0-8.3 g/dL Albumin 2.9 L 3.5-5.0 g/dL Acetaminophen Level < 1 L 10-30 mcg/mL Segmented Neutrophils % 46 40-70 % Band Neutrophils % 8 H 0-2 % Lymphocytes % (Manual) 3 L 22-44 % Monocytes % (Manual) 5 2-9 % Eosinophils % (Manual) 3 1-6 % Differential Comment MANUAL DIFFERENTIAL Reactive Lymphocytes 35 H 0-0 % White Cell Morphology Comment Platelet Morphology Comment Red Blood Cell Morphology MICROCYTIC 1+ Troponin I High Sensitivity < 4 L 4-50 ng/L Lipase 50 16-77 U/L Urine Color YELLOW YELLOW Urine Appearance CLEAR CLEAR Urine pH 5.5 5.0-8.0 Urine Specific [place] 1.016 1.001-1.031 Urine Protein 10 H NEGATIVE mg/dL Urine Glucose (UA) NEGATIVE NEGATIVE mg/dL Urine Ketones 10 H NEGATIVE mg/dL Urine Occult Blood +- (TRACE) H NEGATIVE Urine Nitrate NEGATIVE NEGATIVE Urine Bilirubin NEGATIVE NEGATIVE mg/dL Urine Urobilinogen 3 H 0.2-1.0 mg/dL Urine Leukocyte Esterase NEGATIVE NEGATIVE Bebeto/uL Urine RBC 0-1 0-1 /HPF Urine WBC 6-10 H 0-1 /HPF Urine Squamous Epithelial Cells FEW 0-2 /HPF Urine Bacteria FEW None Seen /HPF Urine Other Casts 1 None Seen /LPF Urine HCG, Qualitative NEGATIVE NEGATIVE Current Medications Medications (Trade) Dose Ordered Sig/Thelma Route PRN Reason Start Time Stop Time Status Last Admin Dose Admin Famotidine (Pepcid 20mg Vial) 20 mg BID IV 08/05/24 09:00 09/04/24 08:59 08/05/24 08:58 20 MG Ondansetron HCl (zoFRAN 4MG INJ) 4 mg Q6H PRN IV NAUSEA/VOMITING 08/05/24 01:00 09/04/24 00:59 08/05/24 01:44 4 MG Sodium Chloride 1,000 ml @ 100 mls/hr Q10H IV 08/05/24 01:00 09/04/24 00:59 08/05/24 01:40 100 MLS/HR Diagnostics / Radiology: [COPY/PASTE HERE IF NO REPORTS PLEASE DELETE SECTION] Assessment: Transaminitis Fever Abdominal pain N/V Plan: Transaminitis, likely of viral etiology Will obtain liver serologies and viral panel Trend LFTs and INR daily Continue GI prophylaxis Advance diet as tolerated Avoid NSAIDs Antireflux measures Monitor H&H and transfuse as needed Call with questions, concerns or change in clinical status Patient to follow-up at clinic post discharge Thank you for this consult LUBNA CARPENTERP Aug 05, 2024 10:20
--- NOTE | 2024-08-05 11:20 | HMCIMG ---
MRCP(ABDWO)CHOLANGIOPANCREATOG HISTORY: Abnormal liver function tests COMPARISON: None TECHNIQUE: MRI of the abdomen was performed utilizing multiple pulse sequences in axial, coronal and sagittal planes. Patient was not given contrast through intravenous route. MRCP was obtained. FINDINGS: No pleural effusion is seen bilaterally. Liver is borderline enlarged measuring 16 cm. No gallstone is seen. Common duct measures 5 mm. No MR evidence of common duct stone is seen. Adrenal glands and pancreas are unremarkable. Both kidneys are seen without hydronephrosis. No evidence of adenopathy or ascites is seen. IMPRESSION: 1. No gallstone. No ductal dilatation. No MR evidence of common duct stone.
[2024-08-05 11:42] LABS: % IRON SATURATION 27.4 % (22-44)
[2024-08-05 11:53] LABS: INR 1.03 (0.85-1.15); PROTHROMBIN TIME 10.9 SEC (9.6-11.6)
[2024-08-05] MEDS: ibuPROFEN 600 MG TABLET PO ONE (12:47)
--- NOTE | 2024-08-05 13:53 | NUR ---
DCP: HOME Pt lives in a home she rents with her room mate Devin Ledesma [phone]. Pt denies issues affording rent, utilities, or food. 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 Pt reports she is independent of all her ADLS and IADLS. Uses no DME or HH services. No PCP, community resources provided, uses [facility] for rx as needed. Pt denies dc needs and will return home at nm. Father Lamont Samuel [phone] is Er contact Addendum: 08/05/24 at 1357 by REAGAN REYNOSO Amended: Links added.
[2024-08-05 14:30] VITALS: O2SAT 98
[2024-08-05 14:53] LABS: HEPATITIS A IGM ANTIBODY Non-Reactive (Nonreactive); HEPATITIS B CORE IGM ANTIBODY Non-Reactive (Negative); HEPATITIS B SURFACE ANTIGEN Non-Reactive (Nonreactive); HEPATITIS C ANTIBODY Non-Reactive (Nonreactive)
--- NOTE | 2024-08-05 15:52 | NUR ---
SPEECH TRIGGER COMPLETED / DEHYDRATION Pt IS A 38 Y.O. FEMALE ADMITTED SECONDARY TO TRANSAMINITIS AND DEHYDRATION. Pt HAS A PAST MEDICAL HISTORY SIGNIFICANT FOR MIGRAINES. NO CHEST XRAYS COMPLETED DURING THIS ADMISSION OF NOW. Pt CURRENTLY ON REGULAR DIET (REGULAR TEXTURE AND THIN LIQUIDS). PER CHARGE NURSE, Pt JUST ARRIVED TO FLOOR AND NO CONCERNS WERE REPORTED REGARDING ORAL INTAKE. PLEASE REQUEST SPEECH THERAPY SERVICES FOR SKILLED BEDSIDE SWALLOW EVALUATION IF Pt PRESENTS WITH +S/S OF ASPIRATION SUCH COUGH RESPONSE, THROAT CLEAR, OR WET VOCAL QUALITY DURING ORAL INTAKE. ALL QUESTIONS ANSWERED AT THIS TIME. Addendum: 08/05/[address] [facility] FALL Amended: Links added.
[2024-08-05 16:00] VITALS: BP 116/71; PULSE 80; RESP 19; TEMP 98.5
[2024-08-05 19:20] VITALS: O2SAT 99
[2024-08-05] MEDS ORDERED: PoTASSium chl 10% ELIXIR 20MEQ 20 MEQ/15 ML UDCUP PO PRN (19:30)
[2024-08-05] MEDS ORDERED: PoTASSium chloRIDE 20MEQ/100ML 100 ML IV PRN (19:30)
[2024-08-05 20:00] VITALS: BP 113/70; PULSE 84; RESP 20; TEMP 98.5
[2024-08-05] MEDS: PoTASSium chloRIDE 20MEQ ER 20 MEQ ERTAB PO PRN (20:56)
[2024-08-05] MEDS: MAGNESIUM 2GM PREMIX 50ML 50 ML IV PRN (20:57)
[2024-08-05 23:41] VITALS: BP 106/71; PULSE 85; RESP 20; TEMP 98.4
--- NOTE | 2024-08-06 02:23 | NUR ---
nurse note patient alert and oriented times 4. plan of care discussed with patient and she verbalized understanding. patient is ambulatory independently to the restroom tonight. She showered tonight. She verbalizes no pain tonight. A new IV catheter was placed on her left forearm. The old IV on the IV was discontinued with catheter tip intact. Patient has slept about 5 hours tonight. Call light within reach, bed alarm on, 2 side rails up. will continue to monitor patient.
--- NOTE | 2024-08-06 02:32 | NUR ---
bm prune juice given to the patient to stimulate bowels. patient passing gas. pending bm
[2024-08-06 03:57] VITALS: BP 111/77; PULSE 90; RESP 20; TEMP 98.6
[2024-08-06 05:32] LABS: HEMATOCRIT 33.5 % (36-48); MEAN CORPUSCULAR HEMOGLOBIN 29.2 pg (27.0-33.0); MEAN CORPUSCULAR HGB CONC 34.6 g/dL (32.0-36.0); MEAN CORPUSCULAR VOLUME 84.4 fL (79-99); RED BLOOD CELL COUNT(AUTO) 3.97 MIL/uL (4.00-5.50); RED CELL DISTRIBUTION WIDTH 12.8 % (11.0-15.5); WHITE BLOOD COUNT (AUTO) 5.9 K/uL (4.8-10.8)
[2024-08-06 05:43] LABS: CREATININE 0.6 mg/dL (0.5-1.0); MAGNESIUM 2.1 mg/dL (1.80-2.40); POTASSIUM 3.7 mmol/L (3.5-5.1)
[2024-08-06 08:00] VITALS: BP 117/72; PULSE 81; RESP 18; TEMP 98.5; O2SAT 98
--- NOTE | 2024-08-06 09:06 | PN ---
GASTROENTEROLOGY PROGRESS NOTE Date of Visit: Aug 06, 2024 Time of Visit: 09:06 Events / Notes: No acute events overnight. LFTs trending down. Denies abdominal pain. Review of Systems: CONSTITUTIONAL: No malaise or change in sensation of wellbeing. ENMT: No rhinorrhea, otorrhea, sinus pain, ear ache. CARDIOVASCULAR: No angina, palpitations, orthopnea or paroxysmal dyspnea. RESPIRATORY: No SOB. GASTROINTESTINAL: No abdominal pain, nausea, vomiting, diarrhea, hematemesis, melena or change in the patient's habitual bowel movements consistency/number. GENITOURINARY: No dysuria, hematuria or change in bladder continence. MUSCULOSKELETAL: No new muscle pain or decrease in muscular strength. No new joint swelling, redness or tenderness. SKIN: No new rash. Physical Exam: GEN: Awake, alert, oriented in person, time and place, and in no acute distress. HEENT: No sinus tenderness. Tympanic membranes were not examined. No rhinorrhea. Oral pharyngeal mucosa is pink, moist and within normal limits. Neck is supple with no cervical lymphadenopathy, thyromegaly or JVD. CHEST: Inspection, palpation and percussion of the chest were unremarkable. Lung auscultation revealed normal breath sounds bilaterally. CARDIAC: PMI is within normal limits. Heart sounds are regular. Normal S1, S2. No gallop or murmur. ABD: Soft, non-tender and not distended. No peritoneal signs on palpation. No organomegaly. Normal bowel sounds. EXT: No cyanosis or clubbing. No edema. SKIN: Intact. No rashes. JOINTS: No evidence of synovitis or acute arthritis. NEURO: Alert and oriented to name, place and person. Cranial nerve examination is unremarkable. No focal motor deficits. Normal speech. Gait is normal. Strength is normal. Vital Signs (last 8hr) Date Time Temp Pulse Resp B/P (MAP) Pulse Ox O2 Delivery O2 Flow Rate FiO2 08/06/24 08:00 98.4 81 18 117/72 98 Room Air 08/06/24 03:57 98.6 90 20 111/77 98 Room Air Laboratory: [ ] Laboratory: Test 08/06/24 04:48 08/05/24 11:19 08/05/24 04:37 08/04/24 21:38 Range/Units White Blood Count 5.9 4.8-10.8 K/uL Red Blood Count 3.97 L 4.00-5.50 MIL/uL Hemoglobin 11.6 L 12.0-16.0 g/dL Hematocrit 33.5 L 36-48 % Mean Corpuscular Volume 84.4 79-99 fL Mean Corpuscular Hemoglobin 29.2 27.0-33.0 pg Mean Corpuscular Hemoglobin Concent 34.6 32.0-36.0 g/dL Red Cell Distribution Width 12.8 11.0-15.5 % Platelet Count 159 130-400 K/uL Mean Platelet Volume 10.1 7.5-10.5 fL Nucleated Red Blood Cells 0.0 0.0-0.19 % Sodium Level 139 136-145 mmol/L Potassium Level 3.7 3.5-5.1 mmol/L Chloride Level 105 101-111 mmol/L Carbon Dioxide Level 31 21-32 mmol/L Blood Urea Nitrogen 5 L 7-18 mg/dL Creatinine 0.6 0.5-1.0 mg/dL Glomerular Filtration Rate Calc 118 >90 mL/min Random Glucose 89 70-105 mg/dL Total Calcium 8.1 L 8.5-10.1 mg/dL Magnesium Level 2.10 1.80-2.40 mg/dL Prothrombin Time 10.9 9.6-11.6 SEC Prothromb Time International Ratio 1.03 0.85-1.15 Iron Level 84 50-170 mcg/dL Total Iron Binding Capacity 306 250-450 mcg/dL Percent Iron Saturation 27.4 22-44 % Kitty-Myers Virus IgG Ab Titer >600.0 H 0.0-17.9 U/mL Kitty-Myers Virus Capsid Ag IgG Ab >600.0 H 0.0-17.9 U/mL Kitty-Myers Virus Capsid Ag IgM Ab <36.0 0.0-35.9 U/mL Kitty-Myers Virus Interpretation Comment . Monoscreen NEGATIVE NEGATIVE Immature Granulocyte % (Auto) 0.6 0-1 % Neutrophils (%) (Auto) 41.7 40.0-77.0 % Lymphocytes (%) (Auto) 39.9 21.0-51.0 % Monocytes (%) (Auto) 12.6 3.0-13.0 % Eosinophils (%) (Auto) 3.9 0.0-8.0 % Basophils (%) (Auto) 1.3 0.0-5.0 % Neutrophils # (Auto) 2.3 1.8-7.7 K/uL Lymphocytes # (Auto) 2.2 1.0-4.8 K/uL Monocytes # (Auto) 0.7 0.1-1.0 K/uL Eosinophils # (Auto) 0.21 0.00-0.70 K/uL Basophils # (Auto) 0.07 0.00-0.20 K/uL Absolute Immature Granulocyte (auto 0.03 0-1 K/uL Total Bilirubin 1.1 H 0.2-1.0 mg/dL Direct Bilirubin 0.5 H 0.0-0.3 mg/dL Gamma Glutamyl Transpeptidase 133 H 5-85 U/L Aspartate Amino Transf (AST/SGOT) 844 *H 10-37 U/L Alanine Aminotransferase (ALT/SGPT) 1548 *H 12-78 U/L Alkaline Phosphatase 183 H 50-136 U/L Lactate Dehydrogenase 537 H 81-234 U/L Total Protein 6.9 6.0-8.3 g/dL Albumin 2.9 L 3.5-5.0 g/dL Acetaminophen Level < 1 L 10-30 mcg/mL Hepatitis A IgM Antibody Non-Reactive Nonreactive Hepatitis B Surface Antigen. Non-Reactive Nonreactive Hepatitis B Core IgM Antibody Non-Reactive Negative Hepatitis C Antibody Non-Reactive Nonreactive Segmented Neutrophils % 46 40-70 % Band Neutrophils % 8 H 0-2 % Lymphocytes % (Manual) 3 L 22-44 % Monocytes % (Manual) 5 2-9 % Eosinophils % (Manual) 3 1-6 % Differential Comment MANUAL DIFFERENTIAL Reactive Lymphocytes 35 H 0-0 % White Cell Morphology Comment Platelet Morphology Comment Red Blood Cell Morphology MICROCYTIC 1+ Troponin I High Sensitivity < 4 L 4-50 ng/L Lipase 50 16-77 U/L Test 08/04/24 21:24 Range/Units Urine Color YELLOW YELLOW Urine Appearance CLEAR CLEAR Urine pH 5.5 5.0-8.0 Urine Specific [place] 1.016 1.001-1.031 Urine Protein 10 H NEGATIVE mg/dL Urine Glucose (UA) NEGATIVE NEGATIVE mg/dL Urine Ketones 10 H NEGATIVE mg/dL Urine Occult Blood +- (TRACE) H NEGATIVE Urine Nitrate NEGATIVE NEGATIVE Urine Bilirubin NEGATIVE NEGATIVE mg/dL Urine Urobilinogen 3 H 0.2-1.0 mg/dL Urine Leukocyte Esterase NEGATIVE NEGATIVE Bebeto/uL Urine RBC 0-1 0-1 /HPF Urine WBC 6-10 H 0-1 /HPF Urine Squamous Epithelial Cells FEW 0-2 /HPF Urine Bacteria FEW None Seen /HPF Urine Other Casts 1 None Seen /LPF Urine HCG, Qualitative NEGATIVE NEGATIVE Current Medications Medications (Trade) Dose Ordered Sig/Thelma Route PRN Reason Start Time Stop Time Status Last Admin Dose Admin Famotidine (Pepcid 20mg Vial) 20 mg BID IV 08/05/24 09:00 09/04/24 08:59 08/06/24 07:58 20 MG Magnesium Sulfate 50 ml @ 0 mls/hr PROTOCOL PRN IV HYPOMAGNESEMIA 08/05/24 19:30 09/04/24 19:29 08/05/24 20:57 15 MLS/HR Ondansetron HCl (zoFRAN 4MG INJ) 4 mg Q6H PRN IV NAUSEA/VOMITING 08/05/24 01:00 09/04/24 00:59 08/05/24 01:44 4 MG Potassium Chloride 100 ml @ 100 mls/hr AD PRN IV POTASSIUM PROTOCOL 08/05/24 19:30 09/04/24 19:29 Potassium Chloride (K-Dur/Klor-Con 20meq) 20 meq AD PRN PO POTASSIUM PROTOCOL 08/05/24 19:30 09/04/24 19:29 08/06/24 06:02 20 MEQ Potassium Chloride (KCl 10% Elixir 20meq/15ml) 20 meq AD PRN PO POTASSIUM PROTOCOL 08/05/24 19:30 09/04/24 19:29 Sodium Chloride 1,000 ml @ 100 mls/hr Q10H IV 08/05/24 01:00 09/04/24 00:59 08/06/24 06:02 100 MLS/HR Diagnostics / Radiology: [COPY/PASTE HERE IF NO REPORTS PLEASE DELETE SECTION] Assessment: Transaminitis Fever Abdominal pain N/V Plan: Transaminitis, likely of viral etiology Will obtain liver serologies and viral panel, F/U outpatient for these results. If LFTS continue to trend down she is cleared for discharge with close f/u Trend LFTs and INR daily Continue GI prophylaxis Advance diet as tolerated Avoid NSAIDs Antireflux measures Monitor H&H and transfuse as needed Call with questions, concerns or change in clinical status Patient to follow-up at clinic post discharge Thank you for this consult LUBNA CARPENTER [facility] Aug 06, 2024 09:06
--- NOTE | 2024-08-06 09:24 | PN ---
[facility] PROGRESS NOTE Date of Service: Aug 06, 2024 Time of Service: 09:22 SUBJECTIVE: [38 year old presented to the ED with complaints of abdominal pain, nausea and vomiting. Patient also with chills, headaches. Patient reported that she has been taking Tylenol 1000 mg, 3-4 times a day and ibuprofen since last week. This weekend, patient started having nausea and vomiting for about 10 times and started having fever. Patient was noted with elevated transaminitis which could be due to suspected Tylenol induced hepatotoxicity. Chart reviewed, MRCP is unremarkable. Her LFTs downtrending, we will request total CK stat and another LFT panel. We will continue to monitor labs, continue with IV fluids. Appreciate recommendations from GI. REVIEW OF SYSTEMS CONSTITUTIONAL: Positive chills Denies fevers, night sweats. No unintentional weight loss reported. NEUROLOGICAL: Denies headache, amaurosis fugax, motor weakness, sensory deficit, vertigo/spinning sensation, gait abnormalities, or tremors. ENT: No hearing loss, otalgia, otorrhea, rhinitis, rhinorrhea, hoarseness, or sore throat. CARDIOVASCULAR: Denies any exertional angina, dyspnea on exertion, orthopnea, paroxysmal nocturnal dyspnea, palpitations, life-threatening arrhythmias, claudication. PULMONARY: Denies any shortness of breath, cough, phlegm/sputum, hemoptysis, pleuritic chest pain. SLEEP: Denies morning headaches, daytime somnolence or napping. Denies difficulty falling asleep, staying asleep, waking from sleep. Denies knowledge of snoring. GASTROINTESTINAL: Complain of abdominal pain nausea and vomiting Denies any type of dysphagia to either liquids or solids. Denies pyrosis, early satiety, diarrhea, constipation, or changes in stool consistency or caliber. Denies coffee-ground emesis, hematemesis, hematochezia, or melanotic stools. GENITOURINARY: Denies frequency, urgency, nocturia, hematuria or incontinence (Storage/Irritative symptoms.) Low urinary stream, straining to void, urinary intermittency or hesitancy, splitting of the voiding stream, terminal dribbling. ENDOCRINOLOGIC: Denies polyuria, polydipsia, polyphagia or heat/cold intolerances. HEMATOLOGIC: Denies thrombophilia/previous clots, or coagulopathy/bleeding disorders. ONCOLOGIC: Denies personal history of malignancy. DERMATOLOGIC: Denies rashes or pruritus. PSYCHIATRIC: Denies any suicidal or homicidal ideation. Denies hallucinations. PHYSICAL EXAM GENERAL APPEARANCE: The patient is awake, alert, and oriented, in no acute cardiopulmonary distress. NEUROLOGICAL: Cranial nerves II-XII grossly intact. Motor is 5/5 in bilateral upper and lower extremities proximal to distal. No sensory deficits. HEENT: Face is symmetric. Pupils are equal and reactive. Extraocular movements are intact. NECK: Supple. No JVD. No thyromegaly. No submental, submandibular, pre- /postauricular, occipital or supraclavicular lymphadenopathy. CHEST: Normal chest expansion. No Telemetry. LUNGS: Absence of any rales, rhonchi or any wheezing. CARDIOVASCULAR: Regular. S1 and S2 normal. No appreciable rubs, murmurs or gallops. ABDOMEN: Positive tenderness around mid abdomen on palpation Softand nondistended. There is no rebound, voluntary guarding, or rigidity. : Deferred. No Oseguera. EXTREMITIES: Non-edematous and not cyanotic. No clubbing. Good capillary refill. SKIN: No skin breakdown. Vital Signs (last 8hr) Date Time Temp Pulse Resp B/P (MAP) Pulse Ox O2 Delivery O2 Flow Rate FiO2 08/06/24 08:00 98.4 81 18 117/72 98 Room Air 08/06/24 03:57 98.6 90 20 111/77 98 Room Air LABS: Laboratory: Test 08/06/24 04:48 08/05/24 11:19 08/05/24 04:37 08/04/24 21:38 Range/Units White Blood Count 5.9 4.8-10.8 K/uL Red Blood Count 3.97 L 4.00-5.50 MIL/uL Hemoglobin 11.6 L 12.0-16.0 g/dL Hematocrit 33.5 L 36-48 % Mean Corpuscular Volume 84.4 79-99 fL Mean Corpuscular Hemoglobin 29.2 27.0-33.0 pg Mean Corpuscular Hemoglobin Concent 34.6 32.0-36.0 g/dL Red Cell Distribution Width 12.8 11.0-15.5 % Platelet Count 159 130-400 K/uL Mean Platelet Volume 10.1 7.5-10.5 fL Nucleated Red Blood Cells 0.0 0.0-0.19 % Sodium Level 139 136-145 mmol/L Potassium Level 3.7 3.5-5.1 mmol/L Chloride Level 105 101-111 mmol/L Carbon Dioxide Level 31 21-32 mmol/L Blood Urea Nitrogen 5 L 7-18 mg/dL Creatinine 0.6 0.5-1.0 mg/dL Glomerular Filtration Rate Calc 118 >90 mL/min Random Glucose 89 70-105 mg/dL Total Calcium 8.1 L 8.5-10.1 mg/dL Magnesium Level 2.10 1.80-2.40 mg/dL Prothrombin Time 10.9 9.6-11.6 SEC Prothromb Time International Ratio 1.03 0.85-1.15 Iron Level 84 50-170 mcg/dL Total Iron Binding Capacity 306 250-450 mcg/dL Percent Iron Saturation 27.4 22-44 % Kitty-Myers Virus IgG Ab Titer >600.0 H 0.0-17.9 U/mL Kitty-Myers Virus Capsid Ag IgG Ab >600.0 H 0.0-17.9 U/mL Kitty-Myers Virus Capsid Ag IgM Ab <36.0 0.0-35.9 U/mL Kitty-Myers Virus Interpretation Comment . Monoscreen NEGATIVE NEGATIVE Immature Granulocyte % (Auto) 0.6 0-1 % Neutrophils (%) (Auto) 41.7 40.0-77.0 % Lymphocytes (%) (Auto) 39.9 21.0-51.0 % Monocytes (%) (Auto) 12.6 3.0-13.0 % Eosinophils (%) (Auto) 3.9 0.0-8.0 % Basophils (%) (Auto) 1.3 0.0-5.0 % Neutrophils # (Auto) 2.3 1.8-7.7 K/uL Lymphocytes # (Auto) 2.2 1.0-4.8 K/uL Monocytes # (Auto) 0.7 0.1-1.0 K/uL Eosinophils # (Auto) 0.21 0.00-0.70 K/uL Basophils # (Auto) 0.07 0.00-0.20 K/uL Absolute Immature Granulocyte (auto 0.03 0-1 K/uL Total Bilirubin 1.1 H 0.2-1.0 mg/dL Direct Bilirubin 0.5 H 0.0-0.3 mg/dL Gamma Glutamyl Transpeptidase 133 H 5-85 U/L Aspartate Amino Transf (AST/SGOT) 844 *H 10-37 U/L Alanine Aminotransferase (ALT/SGPT) 1548 *H 12-78 U/L Alkaline Phosphatase 183 H 50-136 U/L Lactate Dehydrogenase 537 H 81-234 U/L Total Protein 6.9 6.0-8.3 g/dL Albumin 2.9 L 3.5-5.0 g/dL Acetaminophen Level < 1 L 10-30 mcg/mL Hepatitis A IgM Antibody Non-Reactive Nonreactive Hepatitis B Surface Antigen. Non-Reactive Nonreactive Hepatitis B Core IgM Antibody Non-Reactive Negative Hepatitis C Antibody Non-Reactive Nonreactive Segmented Neutrophils % 46 40-70 % Band Neutrophils % 8 H 0-2 % Lymphocytes % (Manual) 3 L 22-44 % Monocytes % (Manual) 5 2-9 % Eosinophils % (Manual) 3 1-6 % Differential Comment MANUAL DIFFERENTIAL Reactive Lymphocytes 35 H 0-0 % White Cell Morphology Comment Platelet Morphology Comment Red Blood Cell Morphology MICROCYTIC 1+ Troponin I High Sensitivity < 4 L 4-50 ng/L Lipase 50 16-77 U/L Test 08/04/24 21:24 Range/Units Urine Color YELLOW YELLOW Urine Appearance CLEAR CLEAR Urine pH 5.5 5.0-8.0 Urine Specific [place] 1.016 1.001-1.031 Urine Protein 10 H NEGATIVE mg/dL Urine Glucose (UA) NEGATIVE NEGATIVE mg/dL Urine Ketones 10 H NEGATIVE mg/dL Urine Occult Blood +- (TRACE) H NEGATIVE Urine Nitrate NEGATIVE NEGATIVE Urine Bilirubin NEGATIVE NEGATIVE mg/dL Urine Urobilinogen 3 H 0.2-1.0 mg/dL Urine Leukocyte Esterase NEGATIVE NEGATIVE Bebeto/uL Urine RBC 0-1 0-1 /HPF Urine WBC 6-10 H 0-1 /HPF Urine Squamous Epithelial Cells FEW 0-2 /HPF Urine Bacteria FEW None Seen /HPF Urine Other Casts 1 None Seen /LPF Urine HCG, Qualitative NEGATIVE NEGATIVE Current Medications Medications (Trade) Dose Ordered Sig/Thelma Route PRN Reason Start Time Stop Time Status Last Admin Dose Admin Famotidine (Pepcid 20mg Vial) 20 mg BID IV 08/05/24 09:00 09/04/24 08:59 08/06/24 07:58 20 MG Magnesium Sulfate 50 ml @ 0 mls/hr PROTOCOL PRN IV HYPOMAGNESEMIA 08/05/24 19:30 09/04/24 19:29 08/05/24 20:57 15 MLS/HR Ondansetron HCl (zoFRAN 4MG INJ) 4 mg Q6H PRN IV NAUSEA/VOMITING 08/05/24 01:00 09/04/24 00:59 08/05/24 01:44 4 MG Potassium Chloride 100 ml @ 100 mls/hr AD PRN IV POTASSIUM PROTOCOL 08/05/24 19:30 09/04/24 19:29 Potassium Chloride (K-Dur/Klor-Con 20meq) 20 meq AD PRN PO POTASSIUM PROTOCOL 08/05/24 19:30 09/04/24 19:29 08/06/24 06:02 20 MEQ Potassium Chloride (KCl 10% Elixir 20meq/15ml) 20 meq AD PRN PO POTASSIUM PROTOCOL 08/05/24 19:30 09/04/24 19:29 Sodium Chloride 1,000 ml @ 100 mls/hr Q10H IV 08/05/24 01:00 09/04/24 00:59 08/06/24 06:02 100 MLS/HR DIAGNOSTICS / RADIOLOGY: [ ] ASSESSMENT: 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 POA Elevated liver enzymes POA-slowly downtrending Dehydration POA PLAN: Continue medical telemetry Continue clear liquid diet advanced as tolerated Continue NS @ 100 ml / hr x2 bags and re evaluate Continue on Famotidine 20 mg IV bid for GI prophylaxis We will replace electrolytes as needed per protocol We will add prn medication for fever,pain,cough ,nausea and vomiting Ultrasound was unremarkable MRCP unremarkable Appreciate recommendations from vp legal affairs We will order total CK, NH3 and LFTs now We will request labs in am Further orders to follow depending on above results Case discussed with attending physician and came up with above treatment and plan of care. ATTESTATION BY PHYSICIAN I have seen and examined the patient. I reviewed the documentation, medical decision making, and treatment plan as noted by the mid-level provider above. I agree with the findings and plan of care. MARLEE GRANADO MD, [facility] Aug 06, 2024 09:24
[2024-08-06 09:39] LABS: ALBUMIN 2.9 g/dL (3.5-5.0); BILIRUBIN,DIRECT 0.4 mg/dL (0.0-0.3); BILIRUBIN,TOTAL 0.9 mg/dL (0.2-1.0); TOTAL PROTEIN, SERUM 6.9 g/dL (6.0-8.3)
[2024-08-06 10:02] LABS: AMMONIA < 10 umol/L (11-32); CREATINE KINASE, TOTAL 58 U/L (21-232)
[2024-08-06 11:59] VITALS: BP 116/67; PULSE 81; RESP 18; TEMP 98.4
[2024-08-06 16:00] VITALS: BP 126/75; PULSE 75; RESP 18; TEMP 98.5
[2024-08-06 19:00] VITALS: BP 120/66; PULSE 92; RESP 20; TEMP 98.3
[2024-08-06 20:00] VITALS: O2SAT 99
[2024-08-07 00:27] VITALS: BP 125/71; PULSE 77; RESP 20; TEMP 98.3
[2024-08-07 04:38] VITALS: BP 129/66; PULSE 94; RESP 20; TEMP 98.5
--- NOTE | 2024-08-07 07:45 | PN ---
[facility] PROGRESS NOTE Date of Service: Aug 07, 2024 Time of Service: 07:45 SUBJECTIVE: [38 year old presented to the ED with complaints of abdominal pain, nausea and vomiting. Patient also with chills, headaches. Patient reported that she has been taking Tylenol 1000 mg, 3-4 times a day and ibuprofen since last week. This weekend, patient started having nausea and vomiting for about 10 times and started having fever. Patient was noted with elevated transaminitis which could be due to suspected Tylenol induced hepatotoxicity. Chart reviewed, MRCP is unremarkable. Her LFTs downtrending, we will request total CK stat and another LFT panel. We will continue to monitor labs, continue with IV fluids. Appreciate recommendations from GI. 08/07/24 REVIEW OF SYSTEMS CONSTITUTIONAL: Positive chills Denies fevers, night sweats. No unintentional weight loss reported. NEUROLOGICAL: Denies headache, amaurosis fugax, motor weakness, sensory deficit, vertigo/spinning sensation, gait abnormalities, or tremors. ENT: No hearing loss, otalgia, otorrhea, rhinitis, rhinorrhea, hoarseness, or sore throat. CARDIOVASCULAR: Denies any exertional angina, dyspnea on exertion, orthopnea, paroxysmal nocturnal dyspnea, palpitations, life-threatening arrhythmias, claudication. PULMONARY: Denies any shortness of breath, cough, phlegm/sputum, hemoptysis, pleuritic chest pain. SLEEP: Denies morning headaches, daytime somnolence or napping. Denies difficulty falling asleep, staying asleep, waking from sleep. Denies knowledge of snoring. GASTROINTESTINAL: Complain of abdominal pain nausea and vomiting Denies any type of dysphagia to either liquids or solids. Denies pyrosis, early satiety, diarrhea, constipation, or changes in stool consistency or caliber. Denies coffee-ground emesis, hematemesis, hematochezia, or melanotic stools. GENITOURINARY: Denies frequency, urgency, nocturia, hematuria or incontinence (Storage/Irritative symptoms.) Low urinary stream, straining to void, urinary intermittency or hesitancy, splitting of the voiding stream, terminal dribbling. ENDOCRINOLOGIC: Denies polyuria, polydipsia, polyphagia or heat/cold intolerances. HEMATOLOGIC: Denies thrombophilia/previous clots, or coagulopathy/bleeding disorders. ONCOLOGIC: Denies personal history of malignancy. DERMATOLOGIC: Denies rashes or pruritus. PSYCHIATRIC: Denies any suicidal or homicidal ideation. Denies hallucinations. PHYSICAL EXAM GENERAL APPEARANCE: The patient is awake, alert, and oriented, in no acute cardiopulmonary distress. NEUROLOGICAL: Cranial nerves II-XII grossly intact. Motor is 5/5 in bilateral upper and lower extremities proximal to distal. No sensory deficits. HEENT: Face is symmetric. Pupils are equal and reactive. Extraocular movements are intact. NECK: Supple. No JVD. No thyromegaly. No submental, submandibular, pre- /postauricular, occipital or supraclavicular lymphadenopathy. CHEST: Normal chest expansion. No Telemetry. LUNGS: Absence of any rales, rhonchi or any wheezing. CARDIOVASCULAR: Regular. S1 and S2 normal. No appreciable rubs, murmurs or gallops. ABDOMEN: Positive tenderness around mid abdomen on palpation Softand nondistended. There is no rebound, voluntary guarding, or rigidity. : Deferred. No Oseguera. EXTREMITIES: Non-edematous and not cyanotic. No clubbing. Good capillary refill. SKIN: No skin breakdown. Vital Signs (last 8hr) Date Time Temp Pulse Resp B/P (MAP) Pulse Ox O2 Delivery O2 Flow Rate FiO2 08/07/24 04:38 98.4 94 20 129/66 98 Room Air 08/07/24 00:27 98.2 77 20 125/71 98 Room Air LABS: Laboratory: Test 08/06/24 09:41 08/06/24 04:48 08/05/24 11:19 Range/Units Ammonia < 10 L 11-32 umol/L Total Creatine Kinase 58 21-232 U/L White Blood Count 5.9 4.8-10.8 K/uL Red Blood Count 3.97 L 4.00-5.50 MIL/uL Hemoglobin 11.6 L 12.0-16.0 g/dL Hematocrit 33.5 L 36-48 % Mean Corpuscular Volume 84.4 79-99 fL Mean Corpuscular Hemoglobin 29.2 27.0-33.0 pg Mean Corpuscular Hemoglobin Concent 34.6 32.0-36.0 g/dL Red Cell Distribution Width 12.8 11.0-15.5 % Platelet Count 159 130-400 K/uL Mean Platelet Volume 10.1 7.5-10.5 fL Nucleated Red Blood Cells 0.0 0.0-0.19 % Sodium Level 139 136-145 mmol/L Potassium Level 3.7 3.5-5.1 mmol/L Chloride Level 105 101-111 mmol/L Carbon Dioxide Level 31 21-32 mmol/L Blood Urea Nitrogen 5 L 7-18 mg/dL Creatinine 0.6 0.5-1.0 mg/dL Glomerular Filtration Rate Calc 118 >90 mL/min Random Glucose 89 70-105 mg/dL Total Calcium 8.1 L 8.5-10.1 mg/dL Magnesium Level 2.10 1.80-2.40 mg/dL Total Bilirubin 0.9 0.2-1.0 mg/dL Direct Bilirubin 0.4 H 0.0-0.3 mg/dL Aspartate Amino Transf (AST/SGOT) 762 *H 10-37 U/L Alanine Aminotransferase (ALT/SGPT) 1573 *H 12-78 U/L Alkaline Phosphatase 193 H 50-136 U/L Total Protein 6.9 6.0-8.3 g/dL Albumin 2.9 L 3.5-5.0 g/dL Prothrombin Time 10.9 9.6-11.6 SEC Prothromb Time International Ratio 1.03 0.85-1.15 Iron Level 84 50-170 mcg/dL Total Iron Binding Capacity 306 250-450 mcg/dL Percent Iron Saturation 27.4 22-44 % Ceruloplasmin 36.8 19.0-39.0 mg/dL Anti-Nuclear Antibody Screen Negative Negative Anti-Nuclear Antibody Interpret NEERAJ-1 Antibody SS-A/Ro Antibody SS-B/La Antibody Sm (Urban) IgG Antibody, Quant CARTOGRAPHIC DRAFTER IgG Antibody, Quantitative Scl-70 (Scleroderma) Antibody Anti-Double Strand DNA Antibody Anti-Centromere IgG Antibody Kitty-Myers Virus IgG Ab Titer >600.0 H 0.0-17.9 U/mL Kitty-Myers Virus Capsid Ag IgG Ab >600.0 H 0.0-17.9 U/mL Kitty-Myers Virus Capsid Ag IgM Ab <36.0 0.0-35.9 U/mL Kitty-Myers Virus Interpretation Comment . Monoscreen NEGATIVE NEGATIVE Current Medications Medications (Trade) Dose Ordered Sig/Thelma Route PRN Reason Start Time Stop Time Status Last Admin Dose Admin Famotidine (Pepcid 20mg Vial) 20 mg BID IV 08/05/24 09:00 09/04/24 08:59 08/06/24 20:20 20 MG Magnesium Sulfate 50 ml @ 0 mls/hr PROTOCOL PRN IV HYPOMAGNESEMIA 08/05/24 19:30 09/04/24 19:29 08/05/24 20:57 15 MLS/HR Ondansetron HCl (zoFRAN 4MG INJ) 4 mg Q6H PRN IV NAUSEA/VOMITING 08/05/24 01:00 09/04/24 00:59 08/05/24 01:44 4 MG Potassium Chloride 100 ml @ 100 mls/hr AD PRN IV POTASSIUM PROTOCOL 08/05/24 19:30 09/04/24 19:29 Potassium Chloride (K-Dur/Klor-Con 20meq) 20 meq AD PRN PO POTASSIUM PROTOCOL 08/05/24 19:30 09/04/24 19:29 08/06/24 16:22 20 MEQ Potassium Chloride (KCl 10% Elixir 20meq/15ml) 20 meq AD PRN PO POTASSIUM PROTOCOL 08/05/24 19:30 09/04/24 19:29 Sodium Chloride 1,000 ml @ 100 mls/hr Q10H IV 08/05/24 01:00 09/04/24 00:59 08/07/24 06:27 100 MLS/HR DIAGNOSTICS / RADIOLOGY: [ ] ASSESSMENT: 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 POA Elevated liver enzymes POA-slowly downtrending Dehydration POA PLAN: Continue medical telemetry Continue clear liquid diet advanced as tolerated Continue NS @ 100 ml / hr x2 bags and re evaluate Continue on Famotidine 20 mg IV bid for GI prophylaxis We will replace electrolytes as needed per protocol We will add prn medication for fever,pain,cough ,nausea and vomiting Ultrasound was unremarkable MRCP unremarkable Appreciate recommendations from radio program director We will order total CK, NH3 and LFTs now We will request labs in am Further orders to follow depending on above results Case discussed with attending physician and came up with above treatment and plan of care. ATTESTATION BY PHYSICIAN I have seen and examined the patient. I reviewed the documentation, medical decision making, and treatment plan as noted by the mid-level provider above. I agree with the findings and plan of care. MARLEE GRANADO MD, ELIZABETH NP Aug 07, 2024 07:45
[2024-08-07 07:56] LABS: BASOPHILS # (AUTO) 0.09 K/uL (0.00-0.20); BASOPHILS % (AUTO) 1.4 % (0.0-5.0); EOSINOPHILS # (AUTO) 0.36 K/uL (0.00-0.70); EOSINOPHILS % (AUTO) 5.6 % (0.0-8.0); HEMATOCRIT 35.1 % (36-48); IMMATURE GRANULOCYTE ABSOLUTE 0.04 K/uL (0-1); LYMPHOCYTES # (AUTO) 2.4 K/uL (1.0-4.8); MEAN CORPUSCULAR HEMOGLOBIN 29.4 pg (27.0-33.0); MEAN CORPUSCULAR HGB CONC 34.5 g/dL (32.0-36.0); MEAN CORPUSCULAR VOLUME 85.4 fL (79-99); MONOCYTES # (AUTO) 0.7 K/uL (0.1-1.0); MONOCYTES % (AUTO) 11.1 % (3.0-13.0); NEUTROPHILS # (AUTO) 2.8 K/uL (1.8-7.7); NEUTROPHILS % (AUTO) 44.3 % (40.0-77.0); PLATELET COUNT (AUTO) 174 K/uL (130-400); RED BLOOD CELL COUNT(AUTO) 4.11 MIL/uL (4.00-5.50); RED CELL DISTRIBUTION WIDTH 13.2 % (11.0-15.5); WHITE BLOOD COUNT (AUTO) 6.4 K/uL (4.8-10.8)
[2024-08-07 08:00] VITALS: BP 108/75; PULSE 89; RESP 18; TEMP 99.8; O2SAT 99
[2024-08-07 08:06] LABS: INR 1.05 (0.85-1.15); PROTHROMBIN TIME 11.1 SEC (9.6-11.6)
[2024-08-07 08:35] LABS: BILIRUBIN,TOTAL 0.8 mg/dL (0.2-1.0); CREATININE 0.7 mg/dL (0.5-1.0); MAGNESIUM 1.8 mg/dL (1.80-2.40); POTASSIUM 3.8 mmol/L (3.5-5.1); TOTAL PROTEIN, SERUM 7.3 g/dL (6.0-8.3)
--- NOTE | 2024-08-07 08:46 | PN ---
GASTROENTEROLOGY PROGRESS NOTE Date of Visit: Aug 07, 2024 Time of Visit: 08:46 Events / Notes: No acute events overnight. LFTs trending down. Denies abdominal pain. Review of Systems: CONSTITUTIONAL: No malaise or change in sensation of wellbeing. ENMT: No rhinorrhea, otorrhea, sinus pain, ear ache. CARDIOVASCULAR: No angina, palpitations, orthopnea or paroxysmal dyspnea. RESPIRATORY: No SOB. GASTROINTESTINAL: No abdominal pain, nausea, vomiting, diarrhea, hematemesis, melena or change in the patient's habitual bowel movements consistency/number. GENITOURINARY: No dysuria, hematuria or change in bladder continence. MUSCULOSKELETAL: No new muscle pain or decrease in muscular strength. No new joint swelling, redness or tenderness. SKIN: No new rash. Physical Exam: GEN: Awake, alert, oriented in person, time and place, and in no acute distress. HEENT: No sinus tenderness. Tympanic membranes were not examined. No rhinorrhea. Oral pharyngeal mucosa is pink, moist and within normal limits. Neck is supple with no cervical lymphadenopathy, thyromegaly or JVD. CHEST: Inspection, palpation and percussion of the chest were unremarkable. Lung auscultation revealed normal breath sounds bilaterally. CARDIAC: PMI is within normal limits. Heart sounds are regular. Normal S1, S2. No gallop or murmur. ABD: Soft, non-tender and not distended. No peritoneal signs on palpation. No organomegaly. Normal bowel sounds. EXT: No cyanosis or clubbing. No edema. SKIN: Intact. No rashes. JOINTS: No evidence of synovitis or acute arthritis. NEURO: Alert and oriented to name, place and person. Cranial nerve examination is unremarkable. No focal motor deficits. Normal speech. Gait is normal. Strength is normal. Vital Signs (last 8hr) Date Time Temp Pulse Resp B/P (MAP) Pulse Ox O2 Delivery O2 Flow Rate FiO2 08/07/24 08:00 99.9 89 18 108/75 99 Room Air 21 08/07/24 04:38 98.4 94 20 129/66 98 Room Air Laboratory: [ ] Laboratory: Test 08/07/24 07:51 08/06/24 09:41 08/06/24 04:48 08/05/24 11:19 Range/Units White Blood Count 6.4 4.8-10.8 K/uL Red Blood Count 4.11 4.00-5.50 MIL/uL Hemoglobin 12.1 12.0-16.0 g/dL Hematocrit 35.1 L 36-48 % Mean Corpuscular Volume 85.4 79-99 fL Mean Corpuscular Hemoglobin 29.4 27.0-33.0 pg Mean Corpuscular Hemoglobin Concent 34.5 32.0-36.0 g/dL Red Cell Distribution Width 13.2 11.0-15.5 % Platelet Count 174 130-400 K/uL Mean Platelet Volume 9.3 7.5-10.5 fL Immature Granulocyte % (Auto) 0.6 0-1 % Neutrophils (%) (Auto) 44.3 40.0-77.0 % Lymphocytes (%) (Auto) 37.0 21.0-51.0 % Monocytes (%) (Auto) 11.1 3.0-13.0 % Eosinophils (%) (Auto) 5.6 0.0-8.0 % Basophils (%) (Auto) 1.4 0.0-5.0 % Neutrophils # (Auto) 2.8 1.8-7.7 K/uL Lymphocytes # (Auto) 2.4 1.0-4.8 K/uL Monocytes # (Auto) 0.7 0.1-1.0 K/uL Eosinophils # (Auto) 0.36 0.00-0.70 K/uL Basophils # (Auto) 0.09 0.00-0.20 K/uL Absolute Immature Granulocyte (auto 0.04 0-1 K/uL Nucleated Red Blood Cells 0.0 0.0-0.19 % Prothrombin Time 11.1 9.6-11.6 SEC Prothromb Time International Ratio 1.05 0.85-1.15 Sodium Level 137 136-145 mmol/L Potassium Level 3.8 3.5-5.1 mmol/L Chloride Level 104 101-111 mmol/L Carbon Dioxide Level 31 21-32 mmol/L Blood Urea Nitrogen 6 L 7-18 mg/dL Creatinine 0.7 0.5-1.0 mg/dL Glomerular Filtration Rate Calc 114 >90 mL/min Random Glucose 90 70-105 mg/dL Total Calcium 8.5 8.5-10.1 mg/dL Magnesium Level 1.80 1.80-2.40 mg/dL Total Bilirubin 0.8 0.2-1.0 mg/dL Aspartate Amino Transf (AST/SGOT) 449 H 10-37 U/L Alanine Aminotransferase (ALT/SGPT) 1223 *H 12-78 U/L Alkaline Phosphatase 202 H 50-136 U/L Total Protein 7.3 6.0-8.3 g/dL Albumin 3.0 L 3.5-5.0 g/dL Ammonia < 10 L 11-32 umol/L Total Creatine Kinase 58 21-232 U/L Direct Bilirubin 0.4 H 0.0-0.3 mg/dL Iron Level 84 50-170 mcg/dL Total Iron Binding Capacity 306 250-450 mcg/dL Percent Iron Saturation 27.4 22-44 % Ceruloplasmin 36.8 19.0-39.0 mg/dL Anti-Nuclear Antibody Screen Negative Negative Anti-Nuclear Antibody Interpret NEERAJ-1 Antibody SS-A/Ro Antibody SS-B/La Antibody Sm (Urban) IgG Antibody, Quant ENDS BREAKAGE CLERK IgG Antibody, Quantitative Scl-70 (Scleroderma) Antibody Anti-Double Strand DNA Antibody Anti-Centromere IgG Antibody Kitty-Myers Virus IgG Ab Titer >600.0 H 0.0-17.9 U/mL Kitty-Myers Virus Capsid Ag IgG Ab >600.0 H 0.0-17.9 U/mL Kitty-Myers Virus Capsid Ag IgM Ab <36.0 0.0-35.9 U/mL Kitty-Myers Virus Interpretation Comment . Monoscreen NEGATIVE NEGATIVE Current Medications Medications (Trade) Dose Ordered Sig/Thelma Route PRN Reason Start Time Stop Time Status Last Admin Dose Admin Famotidine (Pepcid 20mg Vial) 20 mg BID IV 08/05/24 09:00 09/04/24 08:59 08/07/24 07:53 20 MG Magnesium Sulfate 50 ml @ 0 mls/hr PROTOCOL PRN IV HYPOMAGNESEMIA 08/05/24 19:30 09/04/24 19:29 08/05/24 20:57 15 MLS/HR Ondansetron HCl (zoFRAN 4MG INJ) 4 mg Q6H PRN IV NAUSEA/VOMITING 08/05/24 01:00 09/04/24 00:59 08/05/24 01:44 4 MG Potassium Chloride 100 ml @ 100 mls/hr AD PRN IV POTASSIUM PROTOCOL 08/05/24 19:30 09/04/24 19:29 Potassium Chloride (K-Dur/Klor-Con 20meq) 20 meq AD PRN PO POTASSIUM PROTOCOL 08/05/24 19:30 09/04/24 19:29 08/06/24 16:22 20 MEQ Potassium Chloride (KCl 10% Elixir 20meq/15ml) 20 meq AD PRN PO POTASSIUM PROTOCOL 08/05/24 19:30 09/04/24 19:29 Sodium Chloride 1,000 ml @ 100 mls/hr Q10H IV 08/05/24 01:00 09/04/24 00:59 08/07/24 06:27 100 MLS/HR Diagnostics / Radiology: [COPY/PASTE HERE IF NO REPORTS PLEASE DELETE SECTION] Assessment: Transaminitis Fever Abdominal pain N/V Plan: Transaminitis, likely of viral etiology Will obtain liver serologies and viral panel, F/U outpatient for these results. If LFTS continue to trend down she is cleared for discharge with close f/u Trend LFTs and INR daily Continue GI prophylaxis Advance diet as tolerated Avoid NSAIDs Antireflux measures Monitor H&H and transfuse as needed Call with questions, concerns or change in clinical status Patient to follow-up at clinic post discharge Thank you for this consult LUBNA CARPENTER BEADER TENDER Aug 07, 2024 08:46
[2024-08-07 08:57] LABS: EOSINOPHILS % (MANUAL) 5 % (1-6); LYMPHOCYTES % (MANUAL) 32 % (22-44); MAN.DIFF COMMENT-IMPRESSION MANUAL DIFFERENTIAL; MONOCYTES % (MANUAL) 4 % (2-9); MYELOCYTES % 2 % (0-0); PROMYELOCYTES % 2 (0-0); REACTIVE LYMPHOCYTES 7 % (0-0); SEGMENTED NEUTROPHILS % 48 % (40-70); TOTAL CELLS COUNTED 100
[2024-08-07 08:58] LABS: PLATELET MORPHOLOGY COMMENT ADEQUATE; WBC MORPHOLOGY IMMATURE G
[2024-08-07 11:17] VITALS: BP 113/68; PULSE 80; RESP 18; TEMP 98.2
--- NOTE | 2024-08-07 11:34 | DS ---
Discharge Summary Hospital Course Summary: [38 year old presented to the ED with complaints of abdominal pain, nausea and vomiting. Patient also with chills, headaches. Patient reported that she has been taking Tylenol 1000 mg, 3-4 times a day and ibuprofen since last week. This weekend, patient started having nausea and vomiting for about 10 times and started having fever. Patient was noted with elevated transaminitis which could be due to suspected Tylenol induced hepatotoxicity. Chart reviewed, MRCP is unremarkable. Her LFTs downtrending, we will request total CK stat and another LFT panel. We will continue to monitor labs, continue with IV fluids. Appreciate recommendations from GI. 08/07/24 PATIENT IS CLINICALLY STABLE LFTS ARE TRENDING DOWN. DENIES ABDOMINAL PAIN. NO ACUTE EVENTS OVERNIGHT DURING THE COURSE PATIENT WAS FOLLOWED BY GI .Liver serologies and viral panel, F/U outpatient for these results with GI: DR Vital. PATIENT IS CLINICALLY STABLE FOR DISCHARGE. Procedure(s): .REASON: abnormal lfts ORDERING PHYSICIAN: LUBNA CARPENTER BILL RECAPITULATION CLERK PROCEDURE: MRCP WO - MRCP(ABDWO)CHOLANGIOPANCREATOG MRCP(ABDWO)CHOLANGIOPANCREATOG HISTORY: Abnormal liver function tests COMPARISON: None TECHNIQUE: MRI of the abdomen was performed utilizing multiple pulse sequences in axial, coronal and sagittal planes. Patient was not given contrast through intravenous route. MRCP was obtained. FINDINGS: No pleural effusion is seen bilaterally. Liver is borderline enlarged measuring 16 cm. No gallstone is seen. Common duct measures 5 mm. No MR evidence of common duct stone is seen. Adrenal glands and pancreas are unremarkable. Both kidneys are seen without hydronephrosis. No evidence of adenopathy or ascites is seen. IMPRESSION: 1. No gallstone. No ductal dilatation. No MR evidence of common duct stone. REASON: abd pain ORDERING PHYSICIAN: MARIE CHANEY BILL RECAPITULATION CLERK PROCEDURE: [id number] - US ABDOMINAL RUQ\LTD US ABDOMINAL RUQ\E\LTD HISTORY: No additional history given. COMPARISON: None TECHNIQUE: Right upper quadrant abdominal ultrasound study was performed. FINDINGS: The study is limited due to overlying bowel gas. The visualized portion of the pancreas is within normal limits. Liver measures 14.4 cm. Liver is echogenic consistent with liver parenchymal disease. No gallstone is seen. Common duct measures 5 mm. No evidence of gallbladder wall thickening is seen. Right kidney measures 9.9 x 5.2 x 5.1 cm. No hydronephrosis is seen of the right kidney. IMPRESSION: 1. No gallstones or ductal dilatation is seen. 2. No hydronephrosis is seen. 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 VITAL ONE-WEEK SPECIAL LABS SENT OUT: Liver serologies and viral panel, F/U outpatient for these results with GI: DR Vital. IMAGING (S) report attached to summary : MRCP MICROBIOLOGY: report attached to summary; ACTIVITY: AB JORGE HOME MEDICATIONS none profile AVOID TYLENOL FOR PAIN AND DIET TEA, HERBAL SUPPLEMENTS. TEACHING: AVOID TYLENOL FOR PAIN AND DIET TEA, HERBAL SUPPLEMENTS. Emergency instructions: The patient was instructed to present to the nearest Emergency Department or call 911 should their symptoms return or worsen. Time spent arranging discharge: 31-60 minutes ATTESTATION BY PHYSICIAN I have seen and examined the patient. I reviewed the documentation, medical decision making, and treatment plan as noted by the mid-level provider above. I agree with the findings and plan of care. MARLEE GRANADO MD, ELIZABETH NP Aug 07, 2024 11:34
--- NOTE | 2024-08-07 12:45 | NUR ---
PATIENT DISCHARGED HOME ID BAND,IV AND TELE DANNIE REMOVED. DISCHARGE INSTRUCTIONS EXPLAINED AND GIVEN TO PATIENT. PATIENT VERBALIZED UNDERSTANDING.BELONGINGS PACKED AND TAKEN BY PATIENT. WHEELED DOWN TO PRIVATE CAR.
== END 2024-08-07 12:45 | disposition home or self-care (01) | DRG 918 ==
LOC: EDH 20:27 → EDHIP 20:28 → 3AH 08-05 14:11
PROVIDERS: ADMIT Internal Medicine; ATTEND Internal Medicine
DX: T39.1X1A Poisoning by 4-Aminophenol derivatives, accidental (unintentional), initial encounter (principal); E86.0 Dehydration; E87.8 Other disorders of electrolyte and fluid balance, not elsewhere classified; R74.01 Elevation of levels of liver transaminase levels; G43.909 Migraine, unspecified, not intractable, without status migrainosus; Y92.89 Other specified places as the place of occurrence of the external cause
CPT/HCPCS: 36415; 74181; 76705; 80048; 80053; 80074; 80076; 81001; 81025; 82103; 82104; 82140; 82390; 82550; 82977; 83540; 83550; 83615; 83690; 83735; 84484; 85025; 85027; 85610; 86015; 86038; 86215; 86235; 86308; 86376; 86381; 86665; 86757; 87086; 87529; 87533; 93005; 99285; G0378; J1885; J2405; J2470; J3475; J3490; J7030; S8037